=== PATIENT | male | born 1960 | race Caucasian/White ===

== ENCOUNTER 2019-12-12 10:16 | Emergency (ER) | payer BC, OTHER ==
[~2019-12-12] VITALS: Ht 172.7 cm; Wt 59.0 kg
[~2019-12-12 10:16] MED LIST: NORCO 5-325 TA1 EACH PO
[2019-12-12 11:08] LABS: HEMATOCRIT 45.6 % (42.0-52.0); HEMOGLOBIN 15.6 gm/dL (14.0-18.0); MCH 30.7 pg (26.0-34.0); MCHC 34.2 g/dL (28.0-37.0); MCV 89.8 fL (80.0-100.0); PLATELET COUNT 219 thou/uL (150-400); RBC 5.08 mil/uL (4.50-6.00); RDW 17.2 % (10.5-14.5); WBC 5.5 thou/uL (4.0-11.0)
[2019-12-12 11:14] LABS: ANION GAP 12 mmol/L (7-16); BUN 3 mg/dL (7-18); CALCIUM 8.5 mg/dL (8.5-10.1); CHLORIDE 88 mmol/L (98-107); CO2 25 mmol/L (21-32); CREATININE 0.5 mg/dL (0.7-1.3); GLUCOSE 116 mg/dL (74-106); POTASSIUM 3.9 mmol/L (3.5-5.1); SODIUM 125 mmol/L (136-145)
[2019-12-12 11:23] LABS: APTT 34.6 Seconds (24.5-32.8); INR 1.1; PROTIME 11.1 Seconds (9.3-11.4)
[2019-12-12 11:25] LABS: ALBUMIN 3.6 g/dL (3.4-5.0); MAGNESIUM 2.1 mg/dL (1.8-2.4); SGOT 70 U/L (15-37); SGPT 56 U/L (30-65); TOTAL BILIRUBIN 0.4 mg/dL (<0.1-1.0); TOTAL PROTEIN 7.4 g/dL (6.4-8.2); TROPONIN-I <0.06 ng/mL (<0.06)
[2019-12-12 11:40] LABS: ABSOLUTE NEUTROPHILS 3.8 thou/uL (1.4-8.2); PLATELET ESTIMATE NORMAL
[2019-12-12] MEDS ORDERED: VENTOLIN HFA 1818 GM INH (11:46)
[2019-12-12] MEDS ORDERED: PREDNISONE 20 M20 MG PO (11:46)
[2019-12-12] MEDS ORDERED: DOXYCYCLINE 10100 MG PO (11:46)
[2019-12-12 12:22] VITALS: BP 145/94
--- NOTE | 2019-12-13 08:20 | EKG ---
[facility] [place] [address] ELECTROCARDIOGRAM REPORT Name: JUANPABLOVÍCTORLESTER [id number] Admission: 12/12/19 Attend Phys: Discharge: 12/12/19 Date of : 56 Report #: [id number] THIS REPORT FOR: cc: FAM - Family physician unknown FAM - Family physician unknown Shawn Mcgovern MD ~ THIS REPORT FOR: //name// [facility] ED Test Date: 2019-12-12 Test Time: 10:55:26 Pat Name: LESTER GERONIMO Department: Room: Gender: Wanigan Clerk: : 1960 Requested By: Bassem Marcano Order Number: [id number] MD: Shawn Mcgovern Measurements Intervals [place] Rate: 73 P: 53 MN: 138 QRS: 75 QRSD: 76 T: 60 QT: 412 QTc: 454 Interpretive Statements Sinus rhythm Consider left atrial enlargement Baseline wander in lead(s) V1,V3,V4 No previous ECG available for comparison Electronically Signed On 12-13-2019 8:18:25 CDT by Shawn Mcgovern [email or web address] <ELECTRONICALLY SIGNED> By: Shawn Mcgovern MD 12/13/19 0818 1055 1055 Shawn Mcgovern MD /DALI
== END 2019-12-12 12:22 | disposition home or self-care (01) ==
LOC: ER 10:16
PROVIDERS: Emergency Medicine
DX: J44.1 Chronic obstructive pulmonary disease with (acute) exacerbation (principal); J06.9 Acute upper respiratory infection, unspecified; E87.1 Hypo-osmolality and hyponatremia; F10.10 Alcohol abuse, uncomplicated; J45.909 Unspecified asthma, uncomplicated; F17.210 Nicotine dependence, cigarettes, uncomplicated; Z88.8 Allergy status to other drugs, medicaments and biological substances; Y90.9 Presence of alcohol in blood, level not specified

== ENCOUNTER 2019-12-30 22:08 | Inpatient (IN) | payer OTHER ==
[~2019-12-30] VITALS: Ht 177.8 cm; Wt 48.2 kg
[~2019-12-30 22:08] MED LIST changes: +DOXYCYCLINE 10100 MG PO; +PREDNISONE 20 M20 MG PO; +VENTOLIN HFA 1818 GM INH
[2019-12-30 22:12] VITALS: BP 173/104
--- NOTE | 2019-12-30 22:16 | NUR ---
PATIENT'S STATES THAT HE WAS AT THIS FACILITY AROUND WAS GIVEN AN ANTIBIOTIC AND AN INHALER. STATES SHE DOES NOT BELIEVE HE IS USING THE INHALER CORRECTLY AND CONTINUES TO SMOKE. GAVE PHONE NUMBER TO BE NOTIFIED OF PATIENT CONDITION.
[2019-12-30 22:55] LABS: BE(vivo) -1.7 mmol/L (-2 to +3); HCO3 23.2 mmol/L (22.0-26.0); PCO2 VENOUS 39.9 mmHg (41.0-51.0); PO2 VENOUS 42.5 mmHg (35.0-45.0)
[2019-12-30 23:02] LABS: ABSOLUTE NEUTROPHILS 4.7 thou/uL (1.4-8.2); BASOPHILS 0.9 % (0.0-2.0); EOSINOPHILS 1.5 % (0.0-3.0); HEMATOCRIT 47.3 % (42.0-52.0); HEMOGLOBIN 16.4 gm/dL (14.0-18.0); LYMPHOCYTES 13.5 % (24.0-44.0); MCH 31.1 pg (26.0-34.0); MCHC 34.6 g/dL (28.0-37.0); MONOCYTES 11.6 % (1.0-8.0); PLATELET COUNT 223 thou/uL (150-400); POLYS 72.5 % (36.0-66.0); RBC 5.26 mil/uL (4.50-6.00); RDW 15.8 % (10.5-14.5); WBC 6.5 thou/uL (4.0-11.0)
[2019-12-30 23:14] LABS: ANION GAP 12 mmol/L (7-16); BUN 3 mg/dL (7-18); CALCIUM 8.5 mg/dL (8.5-10.1); CHLORIDE 88 mmol/L (98-107); CO2 24 mmol/L (21-32); CREATININE 0.6 mg/dL (0.7-1.3); GLUCOSE 80 mg/dL (74-106); POTASSIUM 4.2 mmol/L (3.5-5.1); SODIUM 124 mmol/L (136-145)
[2019-12-30 23:18] LABS: MAGNESIUM 2.2 mg/dL (1.8-2.4)
[2019-12-30 23:24] LABS: SGOT 53 U/L (15-37); SGPT 52 U/L (30-65); TOTAL BILIRUBIN 1.3 mg/dL (0.2-1.0); TOTAL PROTEIN 7.5 g/dL (6.4-8.2); TROPONIN-I <0.06 ng/mL (<0.06)
[2019-12-31 02:00] VITALS: BP 156/83
--- NOTE | 2019-12-31 02:01 | NUR ---
HANDOFF TOOL SENT TO [facility]
[2019-12-31 02:27] VITALS: BP 130/91
[2019-12-31 02:50] VITALS: BP 173/102
[2019-12-31 04:55] VITALS: BP 152/94
[2019-12-31 05:15] VITALS: BP 159/92
--- NOTE | 2019-12-31 08:34 | NUR ---
PT ARRIVED FROM ER VIA CART. PLACED IN ROOM 359. ADMISSION ASSESSMENTS COMPLETED. SEE CHARTING. PT REPORTING "I ONLY DRINK A SIX PACK A DAY." REPORTS SOA WITH RR 18-24 BPM. O2 SAT 90-92%. PT REPORTS NEARLY CONSTANT SENSE OF SOA. STATES HE HAS BEEN SOA SINCE HE WAS DISCHARGED A WEEK AGO. DID ALSO STATE THAT HE DID NOT COMPLETE THE DOSE OF DOXYCYCLINE AND PREDNISONE WHILE AT HOME. DENIES ANY PAIN, DENIES WEARING OXYGEN AT HOME. PER ER PT WAS COVERED IN FECES AND URINE SOAKED CLOTHING, PTS IS VERY UNKEPT WITH VERY DIRTY FINGERNAILS. HE STATES HE HAS NOT EATEN IN SEVERAL DAYS BUT DID NOT OFFER AN EXPLANATION TO WHY. SCHROEDER VIRUS SWAB COMPLETED IN ER, PRIOR TO ARRIVAL.
--- NOTE | 2019-12-31 08:47 | EKG ---
[facility] [place] [address] ELECTROCARDIOGRAM REPORT Name: JUANPABLOLESTER Room #: 359-P ADM IN M.R.#: [id number] Admission: 12/31/19 Attend Phys: Dagoberto Rainey MD Discharge: Date of : 56 Report #: [id number] THIS REPORT FOR: cc: LAVONNE - Nara family physician/PCP LAVONNE - Nara family physician/PCP Ronni Shirley MD [facility] ~ THIS REPORT FOR: //name// [facility] ED Test Date: 2019-12-30 Test Time: 22:43:58 Pat Name: LESTER GERONIMO Department: Room: [facility] Gender: M Special Agent In Charge: : 1960 Requested By: Lashawn Bunn Order Number: [id number] MD: Ronni Shirley Measurements Intervals [place] Rate: 85 P: 80 [place]: 144 QRS: 76 QRSD: 122 T: 59 QT: 406 QTc: 483 Interpretive Statements Sinus rhythm Frequent premature ventricular complexes Poor R wave progression Artifact in lead(s) V6 Compared to ECG 12/12/2019 10:55:26 Ventricular premature complex(es) now present Electronically Signed On 12-31-2019 8:45:21 CDT by Ronni Shirley [email or web address] <ELECTRONICALLY SIGNED> By: Ronni Shirley MD, [facility] 12/31/19 0845 [id number] [id number] Ronni Shirley MD, FAC /EPI
--- NOTE | 2019-12-31 13:41 | NUR ---
COVID NEG X 1...NOTIFIED KIMBERLY HILLS AND SHE STATED PATIENT TO REMAIN IN ENHANCED PRECAUTIONS OVERNIGHT AND WILL MONTITOR FOR FEVER AND REASSESS IN AM.
--- NOTE | 2019-12-31 15:25 | NUR ---
INITIAL ASSESSMENT: Received consult. CHINEDU reviewed chart and spoke with nursing and attending physician. Pt was admitted from home due to dyspnea. Pt is in Enhanced Isolation to r/o COVID-19. Pt test is negative. Pt with hx of daily ETOH use. SW attempted to contact pt twice in his room. Pt requested SW to call back later. Per chart, pt lives with his . Pt was recently in the ER on 12/11 and sent home with script for steroids/abx. Pt did not fill scripts. Pt does not have health insurance. [employer] to follow up with pt to see if he [place] or financial assistance. SW is following to assist as needed with discharge planning.
--- NOTE | 2019-12-31 20:27 | NUR ---
PATIENT COOPERATIVE WITH POC AND EATING POORLY INDICATING HE DOESN'T LIKE HOSPITAL FOOD. NOTIFIED DIETARY OF POOR NUTRITIONAL INTAKE. PATIENT HAS NO PAIN AND ABLE TO WALK WITH HAND HOLD ASSIST TO BATHROOM.
[2019-12-31 21:18] VITALS: BP 132/76
--- NOTE | 2019-12-31 23:31 | NUR ---
ASSUMED PT CARE AT 1900. PT REPORTS NO PAIN. COUGH WITH SOME SPUTUM PRODUCTION NOTICIED AND CHARTED. GOT AN ORDER FOR SOME COUGH DROPS PER PT REQUEST. PTS BODY IS RED AND WARM TO TOUCH BUT AFEBRILE. SPOKE TO THIS EVENING, SHE STATES THE PT DRINKS ABOUT 18 BEERS A DAY, BUT THINKS HE HAS CUT DOWN RECENTLY. SHE WANTED US TO ENCOURAGE HIM TO EAT SOMETHING BUT PT DECLINED DUE TO POOR APPETITE. FLUIDS INFUSING PER ORDER. PT IS RESTING IS BED RIGHT NOW WATCHING TV, WILL BE RECEIVING A BREATHING TX SOON.
[2020-01-01 06:04] VITALS: BP 159/113
[2020-01-01 06:33] LABS: HEMATOCRIT 43.8 % (42.0-52.0); HEMOGLOBIN 14.9 gm/dL (14.0-18.0); MCH 30.3 pg (26.0-34.0); MCHC 33.9 g/dL (28.0-37.0); MCV 89.2 fL (80.0-100.0); PLATELET COUNT 211 thou/uL (150-400); RDW 15.6 % (10.5-14.5); WBC 4.8 thou/uL (4.0-11.0)
[2020-01-01 06:47] LABS: CALCIUM 8.3 mg/dL (8.5-10.1); CREATININE 0.4 mg/dL (0.7-1.3); POTASSIUM 3.2 mmol/L (3.5-5.1)
[2020-01-01 11:17] LABS: ABSOLUTE NEUTROPHILS 3.8 thou/uL (1.4-8.2); ANISOCYTOSIS SLIGHT
--- NOTE | 2020-01-01 13:40 | NUR ---
CHINEDU reviewed chart and spoke with nursing and attending physician. Pt's COVID-19 test is negative. Pt remains in Enhanced Isolation. Pt with hx of COPD and daily ETOH use. Pt is slowly progressing towards goals for discharge. CHINEDU spoke with pt via phone. Introduced role of SW. Pt is alert/orientated. Pt states he lives at home with his . Prior to admission, pt was independent with ADLs. No use of DME. No hx of HH services or post-acute placement. Pt's PCP is Dr. Johanna Gabriel. Pt states he does have health insurance through his employer. CHINEDU faxed face sheet from current stay and ER visit last month to [facility] for review. Voice message left for [employer]. Received call back from [employer], stating pt's insurance termed on 12/29. Pt's secondary insurance only provide coverage for pt's . CHINEDU contacted [facility] industrial relations representative to follow up with pt. CHINEDU is following to assist as needed with discharge planning.
--- NOTE | 2020-01-01 16:35 | 2DMMODE ---
[facility] [address] [place] [address] 2 D/M-MODE ECHOCARDIOGRAM Name: LESTER GERONIMO Room #: 359-P ADM IN M.R.#: [id number] Admission: 12/31/19 Attend Phys: Rene Richey MD Discharge: Date of : 56 Report #: [id number] THIS REPORT FOR: cc: LAVONNE - No family physician/PCP LAVONNE - No family physician/PCP Ronni Shirley MD [facility] ~ APPROVED REPORT Study performed: 01/01/2020 15:40:30 EXAM: Comprehensive 2D, Doppler, and color-flow Echocardiogram Patient Location: Bedside Room #: 359 Status: routine BSA: 1.59 HR: 98 bpm BP: 143/86 mmHg Rhythm: PVC's Other Information Study Quality: Adequate Indications COPD Dyspnea 2D Dimensions IVSd: 10.43 (7-11mm) LVOT Diam: 22.00 (18-24mm) LVDd: 43.38 mm PWd: 8.57 (7-11mm) Ascending Ao: 36.81 (22-36mm) LVDs: 26.81 (25-40mm) Aortic Root: 36.16 mm IVC: 16.00 mm Volumes Left Atrial Volume (Systole) Single Plane 4CH: 50.38 mL Single Plane 2CH: 71.45 mL LA ESV Index: 41.00 mL/m2 Aortic Valve AoV Peak Favian.: 1.52 m/s AO Peak Gr.: 9.22 mmHg LVOT Max P.32 mmHg LVOT Max V: 1.35 m/s ROCKY Vmax: 3.39 cm2 [facility] [address] [place] [address] 2 D/M-MODE ECHOCARDIOGRAM Name: LESTER GERONIMO Room #: 359-P [facility] IN [place]#: [id number] Admission: 12/31/19 Attend Phys: Rene Richey MD Discharge: Date of : 56 Report #: [id number] Pulmonary Valve PV Peak Favian.: 0.89 m/s PV Peak Gr.: 3.14 mmHg Tricuspid Valve TR Peak Favian.: 2.39 m/s TR Peak Gr.: 22.89 mmHg PA Pressure: 33.00 mmHg Left Ventricle The left ventricle is normal size. There is normal LV segmental wall motion. There is normal left ventricular wall thickness. The left ventricular systolic function is normal. The left ventricular ejection fraction is within the normal range. LVEF is 55-60%. This study is not technically sufficient to allow evaluation of the LV diastolic function. Right Ventricle The right ventricle is normal size. The right ventricular systolic function is normal. Atria Left atrium is dilated. Right atrium size is normal. Aortic Valve The Aortic valve is mildly calcified. No aortic regurgitation is present. There is no aortic valvular stenosis. Mitral Valve Mitral valve leaflets possibly myxomatous, possible proplapse. Mitral valve is not well visualized. Moderate mitral regurgitation. No evidence of mitral valve stenosis. There is mitral valve prolapse. Tricuspid Valve The tricuspid valve is normal in structure. There is mild tricuspid regurgitation. Estimated PAP 33 mmHg There is mild pulmonary hypertension. Pulmonic Valve The pulmonary valve is normal in structure. There is no pulmonic valvular regurgitation. Great Vessels The aortic root is normal in size. IVC is normal in size and collapses <50% with inspiration. [facility] [address] [place] [address] 2 D/M-MODE ECHOCARDIOGRAM Name: LESTER GERONIMO Room #: 359-[facility] IN .R.#: [id number] Admission: 12/31/19 Attend Phys: Rene Richey MD Discharge: Date of : 56 Report #: [id number] Pericardium There is no pericardial effusion. <Conclusion> The left ventricular systolic function is normal. There is normal LV segmental wall motion. LVEF is 55-60%. Left atrium is dilated. The aortic valve is mildly calcified. No aortic regurgitation or stenosis. Mitral valve leaflets possibly myxomatous, possible prolapse. Mitral valve is not well visualized. Moderate mitral regurgitation. There is mild tricuspid regurgitation. Estimated pulmonary artery pressure of 33 mmHg There is no pericardial effusion. <ELECTRONICALLY SIGNED> By: Ronni Shirley MD, [facility] 01/01/20 1633 1633 1633 Ronni Shirley MD, FACC /INF
== END 2020-01-01 17:05 | disposition left against medical advice (07) | DRG 191 ==
LOC: ER 22:08 → EROBS 12-31 01:51 → 3W 12-31 01:51
PROVIDERS: Nurse Practitioner Family; Student in an Organized Health Care Education/Training Program; ADMIT Hospitalist
DX: J44.1 Chronic obstructive pulmonary disease with (acute) exacerbation (principal); E87.1 Hypo-osmolality and hyponatremia; Z68.1 Body mass index [BMI] 19.9 or less, adult; G62.9 Polyneuropathy, unspecified; F17.210 Nicotine dependence, cigarettes, uncomplicated; R62.7 Adult failure to thrive; F10.20 Alcohol dependence, uncomplicated; Z20.828 Contact with and (suspected) exposure to other viral communicable diseases; Z88.8 Allergy status to other drugs, medicaments and biological substances
CPT/HCPCS: 10779

== ENCOUNTER 2020-01-15 18:28 | Inpatient (IN) | payer OTHER ==
[~2020-01-15] VITALS: Ht 172.7 cm; Wt 49.2 kg
[2020-01-15 18:31] VITALS: BP 127/74
[2020-01-15 19:04] LABS: HEMATOCRIT 40.3 % (42.0-52.0); MCH 31.2 pg (26.0-34.0); MCHC 34.7 g/dL (28.0-37.0); MCV 89.8 fL (80.0-100.0); PLATELET COUNT 296 thou/uL (150-400); RBC 4.49 mil/uL (4.50-6.00); RDW 14.9 % (10.5-14.5); WBC 22.7 thou/uL (4.0-11.0)
[2020-01-15] MEDS ORDERED: DULOXETINE HCL20 MG PO (19:15)
[2020-01-15 19:25] LABS: ALBUMIN 2.9 g/dL (3.4-5.0); ANION GAP 15 mmol/L (7-16); BUN 3 mg/dL (7-18); CALCIUM 8.3 mg/dL (8.5-10.1); CHLORIDE 81 mmol/L (98-107); CO2 20 mmol/L (21-32); CREATININE 0.6 mg/dL (0.7-1.3); GLUCOSE 119 mg/dL (74-106); POTASSIUM 4.1 mmol/L (3.5-5.1); SGOT 32 U/L (15-37); SGPT 27 U/L (30-65); TOTAL BILIRUBIN 1.4 mg/dL (0.2-1.0); TOTAL PROTEIN 6.2 g/dL (6.4-8.2); TROPONIN-I <0.06 ng/mL (<0.06)
[2020-01-15 19:28] LABS: SODIUM 116 mmol/L (136-145)
[2020-01-15 19:35] LABS: ABSOLUTE NEUTROPHILS 21.6 thou/uL (1.4-8.2); ANISOCYTOSIS 1+; POLYCHROMASIA OCCASIONAL
--- NOTE | 2020-01-15 20:16 | NUR ---
SPOKE WITH , MEG WARNING . THIS NURSE GAVE UPDATE ON PLAN OF CARE. MEG HAS CONCERNS ABOUT PT ETOH CONSUMPTION, STATES HE DRINKS 4-6 BEERS EVER DAY, SHE IS UNSURE EXACTLY WHEN HIS LAST DRINK WAS. MEG REPORTS HE HAS BEEN REFUSING TO EAT THE LAST FEW DAYS AND THINKS "THIS IS HIS WAY OF KILLING HIMSELF." MEG STATES SHE DOES NOT HAVE DPOA AND WOULD LIKE CASE MANAGEMENT TO CONTACT HER ABOUT SETTING UP DPOA. THIS NURSE PLANS TO CALL MEG WHEN A BED ASSIGNMENT IS RECEIVED TO UPDATE HER AND GIVE HER THE NUMBER TO THE APPROPRIATE UNIT.
[2020-01-15 20:45] VITALS: BP 133/78
[2020-01-15 20:47] LABS: BE(vivo) -1.9 mmol/L (-2 to +3); HCO3 22.7 mmol/L (22.0-26.0); PCO2 VENOUS 38.5 mmHg (41.0-51.0); PO2 VENOUS 39.6 mmHg (35.0-45.0)
[2020-01-15 21:40] LABS: URINE BILIRUBIN NEGATIVE (Negative); URINE BLOOD TRACE (Negative); URINE CLARITY CLEAR; URINE COLOR YELLOW; URINE GLUCOSE-RANDOM* NEGATIVE (Negative); URINE KETONES NEGATIVE (Negative); URINE LEUKOCYTES-REFLEX NEGATIVE (Negative); URINE NITRITE-REFLEX NEGATIVE (Negative); URINE PROTEIN (DIPSTICK) NEGATIVE (Negative); URINE SPECIFIC GRAVITY <= 1.005 (1.005-1.035); URINE UROBILINOGEN 0.2 E.U./dl (0.2-1.0)
--- NOTE | 2020-01-15 21:54 | NUR ---
PT ADMITTED TO ICU ROOM 237 FROM ED AT 2150. PT DROWSY, BUT ORIENTED X3, RESPONDS TO VERBAL STIMULI. PT INCONTINENT OF URINE. WILL BE PLACING SMITH PER ORDERS IN ORDER TO MAINTAIN ACCURATE I&O. MONITOR SINUS TACHYCARDIA (116 BPM), O2 SAT 96% ON 2 LITER. VARIOUS BRUISES ALL OVER BODY, ABRASION OVER LEFT EYE SOCKET FROM FALL PRIOR TO ADMIT, AND COCCYX IS REDDENED.
[2020-01-15 22:00] VITALS: BP 149/94
[2020-01-15 22:15] VITALS: BP 128/84
[2020-01-15 22:45] VITALS: BP 129/83
[2020-01-15 23:00] VITALS: BP 127/83
[2020-01-15 23:06] LABS: MAGNESIUM 1.9 mg/dL (1.8-2.4); PHOSPHORUS 3.6 mg/dL (2.5-4.9)
[2020-01-15 23:36] LABS: FOLIC ACID 10.3 ng/mL (8.6-58.9)
--- NOTE | 2020-01-15 23:50 | NUR ---
PT ADMITTED FROM ED. PT WAS IN COMMUNITY AND FELL, [place] [employer] WERE CONTACTED, EMS CONTACTED AND PT BROUGHT TO ED. PER REPORT FROM ED PT WAS ON 3W WITHIN LAST 3 WEEKS. PT IS ORIENTED TO NAME SITUATION DAY OF THE WEEK, CONFUSED RE TIME AND HISTORY. PT IS DISHEVELED, UNKEMPT, ED REPORTED CLOTHES COVERED IN URINE, SOCKS VERY DIRTY. PT HAS DIRT UNDER NAILS, BOGGY WHITE HEELS, 3 COCCYX WOUNDS, RED COCCYX AND GROIN RASH. ABRASION OVER L EYE, ABRASION L KNEE. LUNGS WITH CRACKLES, O2 PER NC. ED PROVIDED ANTIBIOTICS AND FLUIDS. SMITH INSERTED TO DD. PT ABLE TO FOLLOW COMMANDS, MOVES ALL EXTREMITIES, TRANSFERED FROM CART TO BED, DROWSY, GOOD EYE CONTACT, CLEAR SPEECH. PT NOTED TO HAVE YELLOW DRAINAGE IN BILATERAL EYES. PT PROVIDED WIPE BATH AND NEW GOWN. PTS CALLED TO CHECK ON CONDITION. PT REMAINS IN COVID R/O. CONSULTS TO RENAL AND ID CONTACTED AND NEW ORDERS OBTAINED.
[2020-01-16] VITALS (8 sets, daily range): BP systolic 129–157; BP diastolic 80–97
[2020-01-16 01:05] LABS: CALCIUM 8.2 mg/dL (8.5-10.1); CREATININE 0.5 mg/dL (0.7-1.3); POTASSIUM 3.8 mmol/L (3.5-5.1)
[2020-01-16 05:48] LABS: HEMATOCRIT 42.9 % (42.0-52.0); HEMOGLOBIN 14.7 gm/dL (14.0-18.0); MCHC 34.3 g/dL (28.0-37.0); MCV 90.2 fL (80.0-100.0); RBC 4.75 mil/uL (4.50-6.00); WBC 15.7 thou/uL (4.0-11.0)
[2020-01-16 05:57] LABS: CREATININE 0.4 mg/dL (0.7-1.3); POTASSIUM 3.7 mmol/L (3.5-5.1)
--- NOTE | 2020-01-16 07:42 | EKG ---
[facility] [place] [address] ELECTROCARDIOGRAM REPORT Name: LESTER GERONIMO Room #: 237-P ADM IN M.R.#: [id number] Admission: 01/15/20 Attend Phys: Tong Tuttle MD Discharge: Date of : 56 Report #: [id number] THIS REPORT FOR: cc: LAVONNE - Nara family physician/PCP LAVONNE - Nara family physician/PCP Ronni Shirley MD [facility] THIS REPORT FOR: //name// [facility] ED Test Date: 2020-01-15 Test Time: 18:37:06 Pat Name: LESTER GERONIMO Department: Room: Pending [facility] to [facility] Gender: M Construction Equipment Technician: JAY : 1960 Requested By: Sandeep Dueñas Order Number: [id number] MD: Ronni Shirley Measurements Intervals [place] Rate: 119 P: 53 SD: 112 QRS: 70 QRSD: 108 T: 60 QT: 323 QTc: 455 Interpretive Statements Sinus tachycardia Otherwise no significant abnormality Compared to ECG 12/30/2019 22:43:58 Ventricular premature complex(es) no longer present Poor R-wave progression no longer present Electronically Signed On 01-16-2020 7:38:31 CDT by Ronni Shirley [email or web address] <ELECTRONICALLY SIGNED> By: Ronni Shirley MD, [facility] 01/16/20 [id number] Ronni Shirley MD, [facility] /EPI
--- NOTE | 2020-01-16 09:12 | NUR ---
WOUND CONSULT; ASESSMENT LIMITED TO PHOTOS DUE TO COVID RESTRICTIONS. 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 THE ALL THE WOUNDS ARE UNSTAGEABLE AGAIN RELATED TO LIMITED ASSESSMENT. THERE ARE LIKELY PRESSURE AREAS TO THE SACRUM/BILATERAL BUTTOCKS(POSSIBLE DTI),POSSIBLE ADDITIONAL PRESSURE INJURIES TO THE BILATERAL ISCHIAL TUBEROSITIES AND HEELS THAT ARE BOGGY THE RN STATED. THE BUTTOCKS LIKEY HAS A FUNGAL ETIOLOGY WELL. RECOMMENDSTIONS; 1-ANTIFUNGAL BARRIER CREAM AM 2-ZGUARD PM 3-BILATERAL PRAFO BOOTS ON AT ALL TIMES 4-USE THE LOW AIRLOSS FUNCTION ON THE BED AT ALL TIMES DISCUSSED WITH RN
--- NOTE | 2020-01-16 10:14 | NUR ---
PATIENT AOX4. PT SPOKE WITH PHYSICIAN AND STATED HE WANTED TO LEAVE AMA. NURSE FOLLOWED UP WITH PATIENT, EDUCATED ON RISKS REGARDING DIAGNOSIS AND WHAT AMA ENTAILED. PATIENT INSISTS ON LEAVING. PATIENT'S WAS NOTIFIED. STATES SHE WILL COME TO PICK HIM UP.
[2020-01-16 11:11] LABS: AMP/METHAMP Negative (Negative); BARBITURATES Negative (Negative); BENZODIAZEPINES Negative (Negative); COCAINE Negative (Negative); METHADONE Negative (Negative); OPIATES Negative (Negative); PCP Negative (Negative)
--- NOTE | 2020-01-16 11:41 | NUR ---
Consult received for discharge planning. Discussed with attending physician. Pt was admitted due to pneumonia. Pt with hx of ETOH abuse. Pt does not have health insurance. Pt left AMA earlier today. Case closed.
== END 2020-01-16 11:22 | disposition left against medical advice (07) | DRG 871 ==
LOC: ER 18:28 → ICU 20:29 → EROBS 20:29 → ICU 21:46
PROVIDERS: Emergency Medicine; Hospitalist; Internal Medicine Nephrology; Nurse Practitioner Family; ADMIT Hospitalist; ATTEND Hospitalist
DX: A41.9 Sepsis, unspecified organism (principal); J96.01 Acute respiratory failure with hypoxia; J18.9 Pneumonia, unspecified organism; E87.1 Hypo-osmolality and hyponatremia; J44.0 Chronic obstructive pulmonary disease with (acute) lower respiratory infection; G62.9 Polyneuropathy, unspecified; F10.10 Alcohol abuse, uncomplicated; R62.51 Failure to thrive (child); Z53.29 Procedure and treatment not carried out because of patient's decision for other reasons; Z20.828 Contact with and (suspected) exposure to other viral communicable diseases; F17.210 Nicotine dependence, cigarettes, uncomplicated; L89.159 Pressure ulcer of sacral region, unspecified stage; S00.83XA Contusion of other part of head, initial encounter; Z88.8 Allergy status to other drugs, medicaments and biological substances; Z71.6 Tobacco abuse counseling; X58.XXXA Exposure to other specified factors, initial encounter; Y93.89 Activity, other specified; Y92.89 Other specified places as the place of occurrence of the external cause; Y99.8 Other external cause status
CPT/HCPCS: 10078

== ENCOUNTER 2020-01-22 05:05 | Inpatient (IN) | payer OTHER ==
[2020-01-22] VITALS (17 sets, daily range): BP systolic 101–154; BP diastolic 55–89
[~2020-01-22] VITALS: Ht 172.7 cm; Wt 53.5 kg
--- NOTE | ~2020-01-22 | EMS ---
[facility] [address] [place] [address] EMS Patient Care Report Name: LESTER GERONIMO Room #: PRE ER M.R.#: [id number] Admission: Attend Phys: Discharge: Date of : 56 Report #: [id number] THIS REPORT FOR: //name// Report Transmitted: 01/22/2020 04:56 EMS Care Summary [facility] Incident [id number] @ 01/22/2020 04:20 Incident Location [address] [place] [address] Patient LESTER GERONIMO Male, 59 Years 1960 Patient Address [address] [place] [address] Patient History Alcohol Abuse, Patient Allergies No known allergies, Patient Medications Doxycycline, Voltaren, Chief Complaint Shortness of breath Disposition Transported No Lights/[place] Dispatch Reason Breathing Problem Transported To [facility] Narrative AOS to 59yo M. Found in private res. Alert to verbal. Oriented x1 . C/O Shortness of breath. Pt has recently signed out AMA from ICU with pneumonia. Per , today he has been drinking ETOH and becoming increasingly short of breath until the last hour when he has become more incoherent and short of [address] [address] EMS Patient Care Report Name: LESTER GERONIMO Room #: PRE ER Kala.#: [id number] Admission: Attend Phys: Discharge: Date of : 56 Report #: [id number] breath. Negative chest pain. Negative Abd pain. Negative N/V. Negative trauma. PERRL. Diminished lung sounds on right. 12 lead shows no acute changes. Pt placed on 4lpm O2 via NC .with minor improvement. Pt moved to ambulance via gurney without incident. Pt placed on 15lpm O2 via NC .with positive improvement. Blood glucose 55. Medic [place] admin dextrose with positive effect. Pt transported in POC without incident. Pt care transferred to DEALER ANALYST without incident. Squad 51 returned to service. All time approx. Initial Vitals @04:40 @04:40 @04:54P: 124,R: 22,BP: 166/98,Pain: 0/10,GCS: 13,Glucose: 210,CO: 1,SpO2: 99,Revised Trauma: 12, @04:36P: 119,R: 22,BP: 179/94,GCS: 13,Glucose: 55,SpO2: 86,Revised Trauma: 12, @04:37P: 121,SpO2: 88, @04:48P: 119,R: 22,BP: 158/93,CO: 1,SpO2: 100, Assessments @04:30MENTAL:Confused,Person Oriented,SKIN:Pale,HEENT:Head/Face: No Abnormalities,Eyes: No Abnormalities,Neck/Airway: No Abnormalities,LUNG SOUNDS:General: No Abnormalities,Left Upper: No Abnormalities,Right Upper: No Abnormalities,Left Lower: No Abnormalities,Right Lower: No Abnormalities,ABDOMEN:General: No Abnormalities,Left Upper: No Abnormalities,Right Upper: No Abnormalities,Left Lower: No Abnormalities,Right Lower: No Abnormalities,PELVIS//GI:No Abnormalities,EXTREMITIES:Left Arm: No Abnormalities,Right Arm: No Abnormalities,Left Leg: No Abnormalities,Right Leg: No Abnormalities,PULSE:NEURO:No Abnormalities,@04:57MENTAL:Person Oriented,Confused,SKIN:Pale,HEENT:Head/Face: No Abnormalities,Eyes: No Abnormalities,Neck/Airway: No Abnormalities,LUNG SOUNDS:General: No Abnormalities,Left Upper: No Abnormalities,Right Upper: No Abnormalities,Left Lower: No Abnormalities,Right Lower: No Abnormalities,ABDOMEN:General: No Abnormalities,Left Upper: No Abnormalities,Right Upper: No Abnormalities,Left Lower: No Abnormalities,Right Lower: No Abnormalities,PELVIS//GI:No Abnormalities,EXTREMITIES:Left Arm: No Abnormalities,Right Arm: No Abnormalities,Left Leg: No Abnormalities,Right Leg: No Abnormalities,PULSE:NEURO:No Abnormalities, Impression Acute Respiratory Distress (Dyspnea) Procedures @04:38ALS AssessmentResponse: UnchangedSucceeded@04:40Saline Lock 0cc (18 ga) Site: Forearm-RightResponse: UnchangedFailed@04:49D10W 200cc (20 ga) Site: Forearm-LeftResponse: ImprovedSucceeded@04:50Dextrose 10% - 200 Milliliters (ml) - Intravenous (IV)Response: Improved@04:32Oxygen FlowRate: 4 Device: Nasal Cannula (NC) Response: ImprovedSucceeded@04:40Oxygen FlowRate: 15 Device: Non [address] [address] EMS Patient Care Report Name: LESTER GERONIMO Room #: PRE ER M.R.#: [id number] Admission: Attend Phys: Discharge: Date of : 56 Report #: [id number] Re-breather Mask (NRB) Response: UnchangedSucceeded Timeline 04:19,Call Received 04:19,Psap Call 04:20,Dispatched 04:24,En Route 04:25,Initial Responder On Scene 04:29,On Scene 04:30,At Patient 04:32,Oxygen FlowRate: 4 Device: Nasal Cannula (NC) Response: ImprovedSucceeded, 04:36,BP: 179/94 M,PULSE: 119,RR: 22 R,SPO2: 86 Ox,ETCO2: ,B,PAIN: ,GCS: 13, 04:37,BP: / M,PULSE: 121,RR: R,SPO2: 88 Ox,ETCO2: ,BG: ,PAIN: ,GCS: , 04:38,ALS Assessment,Response: UnchangedSucceeded, 04:40,Saline Lock 0cc 18 ga Site: Forearm-Right,Response: UnchangedFailed, 04:40,BP: / M,PULSE: ,RR: R,SPO2: Ox,ETCO2: ,BG: ,PAIN: ,GCS: , 04:40,Oxygen FlowRate: 15 Device: Non Re-breather Mask (NRB) Response: UnchangedSucceeded, 04:40,BP: / M,PULSE: ,RR: R,SPO2: Ox,ETCO2: ,BG: ,PAIN: ,GCS: , 04:48,Depart Scene 04:48,BP: 158/93 M,PULSE: 119,RR: 22 R,SPO2: 100 Ox,ETCO2: ,BG: ,PAIN: ,GCS: , 04:49,D10W 200cc 20 ga Site: Forearm-Left,Response: ImprovedSucceeded, 04:50,Dextrose 10% - 200 Milliliters (ml) - Intravenous (IV),Response: Improved 04:54,BP: 166/98 M,PULSE: 124,RR: 22 R,SPO2: 99 Ox,ETCO2: ,B,PAIN: 0,GCS: 13, 05:02,At Destination 05:17,Call Closed Disclaimer v1.1 Copyright 2020 [employer] This EMS Care Summary contains data elements from the applicable legal record (which may be displayed differently). It is designed to provide pertinent information for the following purposes: continuity of care, clinical quality, and state data reporting. The complete legal record is available to ED staff and administrators of the receiving hospital in ES's Patient Tracker. All data is provided "as is."
[~2020-01-22 05:05] MED LIST changes: +DULOXETINE HCL20 MG PO
[2020-01-22 05:21] LABS: BE(vivo) -5.5 mmol/L (-2 to +3); HCO3 23.9 mmol/L (22.0-26.0); PCO2 65.3 mmHg (35.0-45.0); pH 7.182 (7.360-7.450); sO2 99.5 % (92.0-98.0)
[2020-01-22 05:42] LABS: ABSOLUTE NEUTROPHILS 17.9 thou/uL (1.4-8.2); BASOPHILS 0.2 % (0.0-2.0); EOSINOPHILS 0.1 % (0.0-3.0); HEMATOCRIT 38.4 % (42.0-52.0); LYMPHOCYTES 1.4 % (24.0-44.0); MCH 30.3 pg (26.0-34.0); MCHC 33.8 g/dL (28.0-37.0); MCV 89.6 fL (80.0-100.0); MONOCYTES 7.5 % (1.0-8.0); PLATELET COUNT 319 thou/uL (150-400); POLYS 90.8 % (36.0-66.0); RBC 4.29 mil/uL (4.50-6.00); RDW 14.9 % (10.5-14.5); WBC 19.7 thou/uL (4.0-11.0)
[2020-01-22 05:47] LABS: APTT 37.8 Seconds (24.5-32.8); INR 1.1; PROTIME 11.5 Seconds (9.3-11.4)
[2020-01-22 05:55] LABS: ALBUMIN 2.4 g/dL (3.4-5.0); ANION GAP 5 mmol/L (7-16); BUN 10 mg/dL (7-18); CALCIUM 7.7 mg/dL (8.5-10.1); CHLORIDE 77 mmol/L (98-107); CO2 26 mmol/L (21-32); CREATININE 0.5 mg/dL (0.7-1.3); GLUCOSE 225 mg/dL (74-106); MAGNESIUM 1.8 mg/dL (1.8-2.4); POTASSIUM 4.9 mmol/L (3.5-5.1); SGOT 38 U/L (15-37); SGPT 25 U/L (30-65); TOTAL PROTEIN 5.3 g/dL (6.4-8.2); TROPONIN-I <0.06 ng/mL (<0.06)
[2020-01-22 06:12] LABS: SODIUM 108 mmol/L (136-145)
[2020-01-22] MEDS ORDERED: NOHOMEMEDICATIONS (07:14)
[2020-01-22 07:41] LABS: BE(vivo) -3.7 mmol/L (-2 to +3); HCO3 21.9 mmol/L (22.0-26.0); PCO2 41.4 mmHg (35.0-45.0); PO2 89.1 mmHg (80.0-100.0); pH 7.341 (7.360-7.450); sO2 96.4 % (92.0-98.0)
[2020-01-22 09:04] LABS: FOLIC ACID 14.2 ng/mL (8.6-58.9)
[2020-01-22 10:02] LABS: URINE BILIRUBIN NEGATIVE (Negative); URINE BLOOD 1+ (Negative); URINE CLARITY CLOUDY; URINE COLOR YELLOW; URINE GLUCOSE-RANDOM* 1+ (Negative); URINE KETONES 1+ (Negative); URINE LEUKOCYTES-REFLEX NEGATIVE (Negative); URINE NITRITE-REFLEX NEGATIVE (Negative); URINE PROTEIN (DIPSTICK) TRACE (Negative); URINE UROBILINOGEN 0.2 E.U./dl (0.2-1.0)
[2020-01-22 10:17] LABS: CASTS None Seen /LPF (None Seen); MUCUS 4-6 Moderate strn/LPF (None Seen); SQUAMOUS 0-3 Few /LPF (0-3)
[2020-01-22 10:19] LABS: BACTERIA-REFLEX 1-9 Few /HPF (None Seen); CRYSTALS None Seen /LPF (None Seen); URINE RBC 3-10 Few /HPF (0-2); URINE WBC-REFLEX 6-15 Few /HPF (0-5)
[2020-01-22 10:20] LABS: WBC CLUMPS Occasional (None Seen)
[2020-01-22 10:59] LABS: HCO3 25.8 mmol/L (22.0-26.0); PCO2 105.6 mmHg (35.0-45.0); PO2 110.7 mmHg (80.0-100.0); pH 7.006 (7.360-7.450); sO2 94.8 % (92.0-98.0)
[2020-01-22 12:20] LABS: BE(vivo) -4.5 mmol/L (-2 to +3); HCO3 22.6 mmol/L (22.0-26.0); PCO2 49.4 mmHg (35.0-45.0); PO2 86.4 mmHg (80.0-100.0); sO2 95.3 % (92.0-98.0)
[2020-01-22 12:21] LABS: pH 7.278 (7.360-7.450)
[2020-01-22 12:50] LABS: CALCIUM 7.9 mg/dL (8.5-10.1); CREATININE 0.5 mg/dL (0.7-1.3); POTASSIUM 4.5 mmol/L (3.5-5.1)
[2020-01-22 14:01] LABS: CALCIUM 7.8 mg/dL (8.5-10.1); CREATININE 0.6 mg/dL (0.7-1.3); POTASSIUM 4.2 mmol/L (3.5-5.1)
--- NOTE | 2020-01-22 15:46 | EKG ---
[facility] K[address] Lewis [facility] [place] [address] ELECTROCARDIOGRAM REPORT Name: LESTER GERONIMO Room #: 170 ADM IN M.R.#: [id number] Admission: 01/22/20 Attend Phys: Mike Solo MD Discharge: Date of : 56 Report #: [id number] THIS REPORT FOR: cc: ALVONNE - Nara family physician/PCP LAVONNE - Nara family physician/PCP Shawn Mcgovern MD ~ THIS REPORT FOR: //name// [facility] ED Test Date: 2020-01-22 Test Time: 07:36:22 Pat Name: LESTER GERONIMO Department: Room: [facility] Gender: M Data Sme: ISH : 1960 Requested By: Bassem Marcano Order Number: [id number] MD: Shawn Mcgovern Measurements Intervals [place] Rate: 110 P: 69 [place]: 144 QRS: 69 QRSD: 111 T: 61 QT: 361 QTc: 489 Interpretive Statements Sinus tachycardia Borderline prolonged QT interval Compared to ECG 01/15/2020 18:37:06 No significant changes Electronically Signed On 01-22-2020 15:45:20 CDT by Shawn Mcgovern [email or web address] <ELECTRONICALLY SIGNED> By: Shawn Mcgovern MD 01/22/20 1545 0736 0736 Shawn Mcgovern MD /EPI
--- NOTE | 2020-01-22 16:20 | NUR ---
ATTMEPTED TO CALL REPORT TO ICU THE NURSE STATED THE "ROOM HAD NOT BEEN CLEANED YET" AND THE "ADMITTING NURSE WILL CALL BACK WHEN IT IS READY"
[2020-01-22 16:26] LABS: CALCIUM 7.4 mg/dL (8.5-10.1); CREATININE 0.5 mg/dL (0.7-1.3); POTASSIUM 3.6 mmol/L (3.5-5.1)
--- NOTE | 2020-01-22 17:41 | NUR ---
ATTEMPTED TO CALL REPORT AGAIN, WAS TOLD THE NURSE IS BUSY WITH A COVID PT AND THEY WILL CB
--- NOTE | 2020-01-22 19:26 | NUR ---
PATIENT ARRIVED IN ICU AT 1830 FROM E.D. PLACED ON THE MONITOR. PATIENT ON THE VENT AND LIGHT SEDATION. OGTomasa AND SARAH NOTED. REPORT FROM E.Renee. NURSE GIVEN TO ONCOMING SHIFT RITIKA STEINER.
[2020-01-22 20:19] LABS: CALCIUM 8.2 mg/dL (8.5-10.1); CREATININE 0.5 mg/dL (0.7-1.3); POTASSIUM 3.9 mmol/L (3.5-5.1)
--- NOTE | 2020-01-22 21:53 | NUR ---
PATIENT ADMITED FROM ED DEPARTMENT, SETTLED IN ROOM. CONSULTS CALLED AND COMPLETED. DR. CARPIO PRESENT AT THE BEDSIDE FOR ASSESSMENT, ORDER NOTED TO DISCONTINUE ENHANCED PRECAUIONS. REPORT RECIEVED FROM DAY NURSE, NOTED ER CALLED TO HOTLINE ON PATIENT DUE TO POOR CARE AT HOME, PATIENT WAS FOUND WITH MULTIPLE WOUNDS, MAGGOTS IN BILATERAL HEEL AND COVERED IN FECES/URINE BY EMS. ER WAS ON HOLD FOR AN HOUR AND HUNG UP, WILL NOTIFY SOCIAL WORK. PATIENT NOTED HAVING A RECENT PREVIOUS ADMISSION TO ICU WHERE LEFT AMA, STATED HE LEFT DUE TO NO BEING ABLE TO AFFORD THE HOSPITAL STAY. ALSO STATED THAT PATIENT HAS A PROSTHETIC LEFT EYE THAT IT'S INFECTED, DR. CARPIO MADE AWARE. RESTRAINTS PRESENT ON PATIENT, LIGHT SEDATION FOR VENTILATOR MANAGEMENT. SMITH PATENT TO DEPENDENT DRAINAGE. ALSO STATED THAT PATIENT HAS A HISTORY OF FIBROMYALA AND HAS BEEN WEAK FOR THE PAST 3 MONTHS, SHE STATED PATIENT HAS BEEN STAGNANT ON COUCH, SHE WAS NOT AWARE OF FOOT WOUNDS, SHE STATED THAT PATIENT'S SOCKS WERE SOILED AT HOME AND IT WAS STATED BY WHEN SHE ATTEMPTED TO CHANGE SOCKS PATIENT WAS AGGRESSIVE TOWARDS HER. PATIENT'S MADE AWARE OF SEVERITY OF CONDITION AND UPDATED ON PATIENT'S PLAN. REPORT GIVEN TO ONCOMING RITIKA.
--- NOTE | 2020-01-22 22:34 | NUR ---
SPOKE WITH AND UPDATED ON PATIENT'S MOVE FROM 239 TO 247.
[2020-01-23] VITALS (23 sets, daily range): BP systolic 88–143; BP diastolic 53–96
[2020-01-23 00:06] LABS: GLYCOHEMOGLOBIN (HGB A1C) 5.2 % (4.8-5.6)
[2020-01-23 05:42] LABS: ABSOLUTE NEUTROPHILS 12.4 thou/uL (1.4-8.2); BASOPHILS 0.1 % (0.0-2.0); HEMATOCRIT 37.1 % (42.0-52.0); HEMOGLOBIN 12.3 gm/dL (14.0-18.0); LYMPHOCYTES 2.8 % (24.0-44.0); MCH 30.2 pg (26.0-34.0); MCHC 33.2 g/dL (28.0-37.0); MCV 91.1 fL (80.0-100.0); MONOCYTES 5.1 % (1.0-8.0); PLATELET COUNT 304 thou/uL (150-400); RBC 4.07 mil/uL (4.50-6.00); RDW 14.3 % (10.5-14.5); WBC 13.5 thou/uL (4.0-11.0)
[2020-01-23 06:04] LABS: ALBUMIN 2.2 g/dL (3.4-5.0); CALCIUM 8.3 mg/dL (8.5-10.1); CREATININE 0.5 mg/dL (0.7-1.3); MAGNESIUM 2.2 mg/dL (1.8-2.4); PHOSPHORUS 2.6 mg/dL (2.5-4.9); POTASSIUM 3.8 mmol/L (3.5-5.1)
--- NOTE | 2020-01-23 07:55 | NUR ---
CALLED, HAD PRIVACY CODE. SPOKE WITH HER SEVERAL TIMES THROUGHTOUT SHIFT CONDITION REMAINS UNCHANGED. PT AWAKENS EASILY ON PROPOFOL. VS WNL. MONITOR SR. LEGS MOTTLED. US DONE.REPORT PENDING. FEET IN BOOTS ORDERED. GOOD UO. AM LABS PENDING. 02SAT 100 ON VENT WITH FI02 50. MULTIPLE SMALL LOOSE STOOLS. BUTTOCKS/SACREM WITH LARGE WOUND. SEE PIC. CONT PLAN OF CARE.
--- NOTE | 2020-01-23 10:36 | HC ---
[facility] [place] [address] CONSULTATION Name: LESTER GERONIMO Room #: [facility] ADM IN M.R.#: [id number] Admission: 01/22/20 Attend Phys: Mike Solo MD Discharge: Date of : 56 Report #: [id number] THIS REPORT FOR: cc: LAVONNE - No family physician/PCP LAVONNE - No family physician/PCP Nahid Khan MD ~ CC: [facility] physician/PCP Mike Solo DATE OF SERVICE: 01/22/2020 CHIEF COMPLAINT: Multiple ulcerations. HISTORY OF PRESENT ILLNESS: This is a 59-year-old male patient with a history of alcohol abuse and peripheral neuropathy. He was brought to [facility] by EMS with respiratory failure. He was initially started on BiPAP, had increasing CO2 retention, was then intubated and remains on mechanical ventilation. I have been asked to see him with regard to extensive wounds involving the trunk and lower extremities. The patient is sedated on a respirator, unable to provide any information about himself. All information comes from his medical record and from discussion with the admitting team as well as the Emergency Department physician. PAST MEDICAL HISTORY: Positive for history of bilateral neuropathy, 81-mobi-dddr smoker, history of alcohol abuse, possible COPD, previous arthroscopy of the left knee and a prosthetic left eye. SOCIAL HISTORY: The patient admits to daily alcohol consumption per the chart, also a daily smoker. FAMILY HISTORY: Unknown. REVIEW OF SYSTEMS: Unobtainable. MEDICATIONS: Known Include hydrocodone, prednisone, doxycycline, albuterol. ALLERGIES: PROPOXYPHENE. PHYSICAL EXAMINATION: VITAL SIGNS: Temperature not documented, pulse rate 100, blood pressure 148/83, respiratory rate of 17. GENERAL: This is a cachectic-appearing male patient, who is sedated, does not open his eyes. HEENT: Nose is clear. Throat demonstrates endotracheal tube in place. LUNGS: Clear. HEART: Regular rhythm. [facility] [address] [place] [address] CONSULTATION Name: LESTER GERONIMO Room #: 247-P [facility] IN [facility].#: [id number] Admission: 01/22/20 Attend Phys: Mike Solo MD Discharge: Date of : 56 Report #: [id number] ABDOMEN: Soft. EXTREMITIES: Pelvic region demonstrates fungal/yeast type dermatitis to the perineum, scrotum and gluteal sacral regions. He is unstageable pressure ulcerations to the buttocks bilaterally. There is wet eschar in place. EXTREMITIES: Lower extremities demonstrate deep tissue injuries to both heels, absent distal pulses. Nails are hypertrophic. NEUROLOGIC: The patient is minimally responsive at this time. LABORATORY DATA: Include white blood cell at 19.7, hemoglobin 13.0. Sodium 121, potassium 3.6, chloride 90, CO2 of 27, BUN 6, creatinine 0.5, glucose 88, calcium 7.4, albumin is low at 2.4. CLINICAL IMPRESSION: 1. Unstageable pressure ulceration to the buttocks bilaterally. 2. Yeast dermatitis to the perineal region. 3. Deep tissue injuries to both heels. 4. Peripheral vascular disease by clinical exam. 5. Respiratory failure, requiring mechanical ventilation. 6. Alcohol abuse. 7. Cachexia. RECOMMENDATIONS: At this point in time, the patient is being due admitted presumably to intensive care. We will recommend PRAFO boots to both lower extremities for pressure prophylaxis and Betadine paint to the heels. We will check arterial Dopplers to evaluate for peripheral vascular disease. Recommend an antifungal barrier cream to the perineal region and groin b.i.d. and p.r.n. He will need low air loss mattress and q. 2 hour turning positioning. He will need cautious nutritional support to maximize his wound healing, potential ongoing medical care for his respiratory failure. I appreciate being asked to see him in consultation. <ELECTRONICALLY SIGNED> By: Nahid Khan MD 01/23/20 1036 [id number] [id number] Nahid Khan MD /nt
--- NOTE | 2020-01-23 10:49 | NUR ---
Nutrition: Plan TF start. REC start Vital HP at 20 mL/hr and advance slowly to goal rate of 50 mL/hr with current propofol demands. Pt high refeeding syndrome risk.
--- NOTE | 2020-01-23 12:41 | NUR ---
CONSULTED TO PLACE A CENTRAL LINE FOR A PATIENT IN ICU. ORDER AND CONSENT NOTED. THE PROCEDURE WELL RISKS OF DVT, INFECTION AND PNEUMO WERE DISCUSSED WITH THE PATIENTS AND QUESTIONS WERE ANSWERED. A RIGHT IJ CENTRAL LINE WAS ATTEMPTED PER HOSPITAL POLICY. A STAT CHEST XRAY- LINE HAD COILED. A 2ND LINE VIA OTW WAS PLACED AND THE REPEAT XRAY SHOWING LINE IN GOOD POSITION FOR USE.
--- NOTE | 2020-01-23 17:47 | NUR ---
Consult rec'd for dc planning and request to hotline d/t neglect. Chart reveiwed and case discussed with the care team. Pt is currently in the ICU and intubated. Account Processor visited with his Kathleen who has been at the bedside today. She did provide a copy of his DPOA for HC document and she is noted as the primary agent and his sister Luiza/her sister as alernates. A copy was placed on the chart. Hotline called placed to [facility] based on EMS/ER report of pt's living conditions and his physical appearance upon admission. The pt was covered in feces and foul smelling. He had mutliple pressure ulcers on his sacral area and bila heels; some with maggots. EMS reported the home to be filthy, with animal and human feces, beer cans and pt was minimally responsive. Pt is known to cm from recent admission and AMA discharge. He has a long history of ethol abuse, normally beer and is disabled due to fibromyalgia. He got his SS disability approved in Jun 2019. His Kathleen reports that he has been refusing to eat, shower or seek medical care reporting he just wanted to drink himself to . She states she tried to get him to take a shower and go see his pcp, Dr.Julie Gabriel and even had his sister Luiza come over to try and talk with him. She feels he left AMA to drink and because he was also concerned about finances. He has a limited ins policy through [employer]. Info provided to UR RN for admitting to verify. Dr. Zarate office was notified of the pt's admission and their staff reports that the pt was difficult and non compliant. They have several dogs. The pt's was advised of the hotline call to [facility] and that they would be in touch with her. She requested his sister Luiza be added to be able to call in and check on him. They do not have children. She works outside the home and he is normally able to get around indep with no DME. She notes that he did try to apply for [place] medicaid but they are over resourced due to retirment savings. She did get him a rwalker and w/c a couple of days ago as he was getting weaker. Emotional support provided. She is going to get the home cleaned up and feels this might be a "wake up call" for him. [facility]. She notes that he has never been to AA or tried to go to rehab. Will follow along for support and dc planning. DC timeframe is uncertain. She is awaiting an update from the physicians. She is available as needed and wants to be supportive. Will need to have therapy/rehab evals the pt is able to come off the vent. He is following commands. Nursing updated.
[2020-01-24] VITALS (24 sets, daily range): BP systolic 93–135; BP diastolic 54–77
--- NOTE | 2020-01-24 00:06 | NUR ---
Pt's called in, updated on pt status.
[2020-01-24 02:06] LABS: HIV ANTIBODY Non Reactive (Non Reactive)
[2020-01-24 05:20] LABS: BE(vivo) -1.7 mmol/L (-2 to +3); HCO3 21.2 mmol/L (22.0-26.0); PCO2 29.6 mmHg (35.0-45.0); PO2 226.9 mmHg (80.0-100.0); pH 7.472 (7.360-7.450); sO2 99.6 % (92.0-98.0)
[2020-01-24 05:56] LABS: ALBUMIN 1.8 g/dL (3.4-5.0); CALCIUM 7.7 mg/dL (8.5-10.1); CREATININE 0.3 mg/dL (0.7-1.3); PHOSPHORUS 2.2 mg/dL (2.5-4.9); POTASSIUM 3.9 mmol/L (3.5-5.1)
--- NOTE | 2020-01-24 10:22 | NUR ---
SPOKE WITH PATIENT'S SISTER ROBIN [phone]. GAVE UPDATE ON PATIENT STATUS. ANSWERED HER QUESTIONS REGARDING PATIENT CARE AND PLAN. ROBIN EXPRESSED UNDERSTANDING AND DENIED ANY FURTHER QUESTIONS AT THIS TIME.
--- NOTE | 2020-01-24 15:01 | NUR ---
Pt remains in ICU on the vent. Spouse at bedside off and on today. [facility] lead case manager, Dominga Francois [phone], called to confirm she has been assigned his hotline case. She requested cm to update her once the pt has a dc timeframe and plan. Consumer Attorney confirmed the pt's current ICU status. Will follow.
--- NOTE | 2020-01-24 15:17 | HC ---
[facility] [place] [address] CONSULTATION Name: LESTER GERONIMO Room #: [facility] ADM IN M.R.#: [id number] Admission: 01/22/20 Attend Phys: Mike Solo MD Discharge: Date of : 56 Report #: [id number] THIS REPORT FOR: cc: LAVONNE - Nara family physician/PCP LAVONNE Bains family physician/PCP Min Calix MD ~ CC: [facility] physician/PCP Mike Solo DATE OF SERVICE: 01/22/2020 REASON FOR CONSULTATION: Hyponatremia. REASON FOR PRESENTATION: Altered level of consciousness. HISTORY OF PRESENT ILLNESS: This is obtained from the medical chart. Unfortunately, the patient is known to have intoxication issues. He presented with shortness of breath accompanied by his . Apparently, the patient's called the EMS because he was complaining of shortness of breath. His initial O2 sat in field was reported to be in 50; however, I am not really sure how accurate is that. There are so many ingrown issues regarding the patient's current mental capacity, social issues. He continues to drink. It does look like that his social and living situation was not in a good condition. EMS reported that the house was filthy with foul smelling animal waste and human waste. There were also empty beer cans. The patient's sodium on presentation was found to be 108. The patient was admitted a few days ago to the ICU with a similar presentation; however, he signed against medical advice. PAST MEDICAL HISTORY: 1. Obtained from the medical chart. 2. Alcohol abuse. 3. Tobacco abuse. 4. Prosthetic left eye. 5. Arthroscopy of the left knee. MEDICATIONS: Listed amongst his medications, hydrocodone and doxycycline. ALLERGIES: LISTED DARVON. SOCIAL HISTORY: Unable to obtain, but there is a significant history of alcohol and tobacco abuse. FAMILY HISTORY: Unable to obtain given the patient's current mental status. REVIEW OF SYSTEMS: Unable to obtain given the patient's current mental status. [facility] [address] [place] [address] CONSULTATION Name: LESTER GERONIMO Room #: [facility] IN M.R.#: [id number] Admission: 01/22/20 Attend Phys: Mike Solo MD Discharge: Date of : 56 Report #: [id number] PHYSICAL EXAMINATION VITAL SIGNS: Pulse rate is 118, respiratory rate is 16, blood pressure is 165/97. GENERAL: He is extremely cachectic and emaciated with very poor hygiene. HEAD AND NECK: Poor dentition. CHEST: Decreased air entry on the right side. CARDIOVASCULAR: No rub. ABDOMEN: Soft. LOWER EXTREMITIES: There are extensive cellulitic changes in the groin area, in the left and right feet, plantar aspect. LABORATORY VALUES: White blood cell count 19.7, hemoglobin 13.0. Sodium is 108, potassium is 4.9, BUN is 10, creatinine is 0.5, AST is 38. Calcium is 7.7, blood sugar is 225. ASSESSMENT AND PLAN: 1. Severe hyponatremia due to beer potomania. 2. Alcohol abuse, continued pattern. 3. Very poor social and living conditions. 4. The patient will be admitted to the ICU. 5. No IV fluid is needed at this point. Discontinue IV fluid. This is pure potomania and it should improve on its own. Continue to tariff counsel regarding his alcohol abuse. 6. Delirium tremens precautions. 7. Treatment of his cellulitic changes as per the primary team. <ELECTRONICALLY SIGNED> By: Min Calix MD 01/24/20 1517 [id number] Min Calix MD /nt
--- NOTE | 2020-01-24 19:14 | NUR ---
PATIENT CONTINUES ON VENT. SMITH IN PLACE. PATIENT SEDATED ON PROPOFOL. NS STARTED AND CONTINUES WITH MULTIPLE IV ABX. WOUND CARE PERFORMED; RIGHT ELBOW HAS A OPEN AREA; PHOTO TAKEN AND DRESSING APPLIED. PATIENT'S AT BEDSIDE MAJORITY OF DAY; NEEDS FREQUENT REASSURANCE AND RE-EDUCATION FROM STAFF. VSS. SR/ST ON MONITOR. TUBE FEEDING INCREASED FROM 25/HR TO 35/HR THIS SHIFT.
--- NOTE | 2020-01-24 20:20 | NUR ---
Pt's called for an update, her questions were answered and she said she would likely to call back through the night. She was encouraged to call and that her will be well-cared for.
[2020-01-25] VITALS (24 sets, daily range): BP systolic 126–178; BP diastolic 68–95
[2020-01-25 05:21] LABS: ALBUMIN 1.9 g/dL (3.4-5.0); CALCIUM 7.6 mg/dL (8.5-10.1); CREATININE 0.4 mg/dL (0.7-1.3); PHOSPHORUS 2.6 mg/dL (2.5-4.9); POTASSIUM 3.4 mmol/L (3.5-5.1)
--- NOTE | 2020-01-25 10:46 | NUR ---
Dr. Whitaker on unit, told RN to decrease PT's sedation to prepare for a CPAP trial. at bedside made aware of CPAP process. Propofol gtt was titrated down to 20 mcgs/kg/min at 1045. RT was made aware and verbalized understanding. High fall risk precautions in place. RN will continue to monitor.
[2020-01-25 12:02] LABS: BE(vivo) 3.1 mmol/L (-2 to +3); HCO3 26.4 mmol/L (22.0-26.0); PCO2 35.7 mmHg (35.0-45.0); PO2 136.3 mmHg (80.0-100.0); pH 7.487 (7.360-7.450); sO2 98.9 % (92.0-98.0)
--- NOTE | 2020-01-25 17:26 | NUR ---
PT is progressing towards goals. During sedation vacation PT followed commands and opened his eyes to verbal stimulus. CPAP trial today, PT tolerated well, however did not remain alert enough for extubation. Was placed back on assist control. Sedation medication was changed from propofol to precedex. Precedex is at 0.8 mcg/kg/hr. at bedside. Arrived at approximately 0900 and left at 1706. spoke with Dr. Whitaker, Dr. Duran, RT, and RN at bedside multiple times throughout the day. was reminded multiple times to let the PT rest as his heart rate became tachycardiac and hypertensive as she was interacting with him. PT's attempted to record multiple conversations in the room without consent from all parties. RN told PT's that she must get consent from all parties involved before taking an audio recording. She verbalized understanding. Restraints intact. Fall precautions maintained throughout shift. RN will continue to monitor.
[2020-01-26] VITALS (26 sets, daily range): BP systolic 128–176; BP diastolic 67–100
[2020-01-26 05:41] LABS: HEMATOCRIT 31.6 % (42.0-52.0); HEMOGLOBIN 10.5 gm/dL (14.0-18.0); MCH 30.4 pg (26.0-34.0); MCHC 33.4 g/dL (28.0-37.0); MCV 90.8 fL (80.0-100.0); PLATELET COUNT 274 thou/uL (150-400); RBC 3.47 mil/uL (4.50-6.00); RDW 14.5 % (10.5-14.5); WBC 8.2 thou/uL (4.0-11.0)
[2020-01-26 06:11] LABS: CREATININE 0.4 mg/dL (0.7-1.3); POTASSIUM 3.8 mmol/L (3.5-5.1)
--- NOTE | 2020-01-26 06:44 | NUR ---
No significant changes in pt status
[2020-01-26 07:51] LABS: BE(vivo) 0.2 mmol/L (-2 to +3); PCO2 31.2 mmHg (35.0-45.0); PO2 106.6 mmHg (80.0-100.0); pH 7.485 (7.360-7.450); sO2 98.3 % (92.0-98.0)
--- NOTE | 2020-01-26 08:05 | NUR ---
0700. CPAP TRIAL STARTED PER RT. ABG'S DRAWN, RESULTS CALLED BY RT TO DR. URENA. 0800- PT EXTUBATED, 2L NC PLACED. O2 SAT 97%.
--- NOTE | 2020-01-26 09:09 | NUR ---
0845- RN SPOKE TO PT'S MEG ON PHONE. SHE WAS UPDATED ON PT'S CONDITION AND STATES SHE WILL ARRIVE AT 0900 TO SEE PT.
[2020-01-26 09:51] LABS: ABSOLUTE NEUTROPHILS 6.6 thou/uL (1.4-8.2)
--- NOTE | 2020-01-26 15:42 | NUR ---
1415- PT'S BP 176/100. DR RIOJAS PAGERenee AND ORDERS RECEIVED. MEDICATION GIVEN ORDERED AND BP CAME DOWN TO 167/87. PT'S HR INCREASED TO 135-140'S ST AND SUSTAINED. DR. RIOJAS PAGERenee AND ORDERS RECEIVED. MEDICATION GIVEN ORDERED AND HR NOW 112 ST ON TUNNEL HEADING SUPERVISOR. PT'S TEMP VIA SMITH CATHETER PROBE IS CURRENTLY 37.6, DR. RIOJAS MADE AWARE OF TEMP, AWAITING ORDERS FOR RECTAL ACETAMINOPHEN. WILL CONTINUE TO CLOSELY MONITOR PT. SPO2 REMAINS >98% ON 2L NC. PT NOT IN ANY DISTRESS AT THIS TIME AND WAS UNAWARE OF INCREASED BLOOD PRESSURE AND/OR INCREASED HR.
[2020-01-26 22:49] LABS: HEMATOCRIT 32.5 % (42.0-52.0)
--- NOTE | 2020-01-26 22:50 | NUR ---
UPON INTIAL ASSESSMENT, PT WAS ORIENTED TO SELF AND THE MONTH. HE WAS UNABLE TO VERBALIZE HE WAS IN THE HOSPITAL. NO C/O PAIN OR SOA. SPO2 >90% ON 2L NC. ORAL CARE PROVIDED. BETADINE APPLIED TO BILATERAL HEELS. ANTIFUNGAL CREAM APPLIED TO BILATERAL GLUTES AND GROIN. REPOSITIONED WITH WEDGES. PT'S (MEG) CALLED AROUND 0 AND WAS PROVIDED UPDATE ON PT STATUS. ALL QUESTIONS ANSWERED. PT IS RESTING QUIETLY IN BED AT THIS TIME. PROGRESSING VERY SLOWLY TOWARD POC GOALS. WILL CONTINUE TO MONITOR DURING THE NIGHT.
[2020-01-26 23:22] LABS: CALCIUM 7.7 mg/dL (8.5-10.1); CREATININE 0.3 mg/dL (0.7-1.3); PHOSPHORUS 2.8 mg/dL (2.5-4.9)
[2020-01-27] VITALS (9 sets, daily range): BP systolic 126–155; BP diastolic 76–94
--- NOTE | 2020-01-27 02:36 | NUR ---
0235 - CALLED UNIT FOR UPDATE. ALL QUESTIONS ANSWERED.
--- NOTE | 2020-01-27 03:39 | NUR ---
PT HAS BEEN SLEEPING MOST OF THE NIGHT. RESPIRATIONS EVEN AND UNLABORED. COMPLETE BED BATH GIVEN. PT HAS HAD ONE LOOSE STOOL SO FAR THIS SHIFT. REPOSITIONED Q2H TO PREVENT FURTHER SKIN BREAKDOWN. ANTIFUNAL AND BARRIER CREAM APPLIED TO GLUTEAL WOUNDS. GOOD URINE OUTPUT VIA SMITH. FALL PRECAUTIONS IN PLACE. PROGRESSING SLOWLY TOWARD POC GOALS. WILL CONTINUE TO MONITOR FURTHER.
[2020-01-27 06:00] LABS: HEMATOCRIT 32.7 % (42.0-52.0); HEMOGLOBIN 11.3 gm/dL (14.0-18.0); MCHC 34.5 g/dL (28.0-37.0); MCV 89.9 fL (80.0-100.0); PLATELET COUNT 305 thou/uL (150-400); RBC 3.64 mil/uL (4.50-6.00); RDW 14.8 % (10.5-14.5); WBC 7.6 thou/uL (4.0-11.0)
[2020-01-27 06:09] LABS: CALCIUM 7.6 mg/dL (8.5-10.1); CREATININE 0.3 mg/dL (0.7-1.3); MAGNESIUM 1.9 mg/dL (1.8-2.4)
[2020-01-27 08:44] LABS: PLATELET ESTIMATE NORMAL
--- NOTE | 2020-01-27 17:22 | NUR ---
PT CARE ASSUMED APPROX 1200. ASSESSMENTS CHARTED. PT DENIES PAIN AND SOA. REPORTS ANXIETY. DR JOSEPH NOTIFIED ON ROUNDS. VSS. AT BEDSIDE MOST OF SHIFT. PT ANXIETY LEVEL IMPROVED AFTER BEING MEDICATED. PT'S ORAL INTAKE IMPROVING. NO DISTRESS NOTED.
--- NOTE | 2020-01-27 19:19 | NUR ---
PT HAD EKG DONE THAT SHOWED MINIMAL AT DEPRESSION THAT IS NOT NOTED ON BASELINE EKG. DR TSANG WAS PAGED WITH NO RETURN CALL. VSS AND PT DENIES CHEST PAIN. WILL PASS ON TO NIGHT NURSE TO F/U WITH NOC HAND MEAT SALTER.
--- NOTE | 2020-01-28 04:14 | NUR ---
PATIENS CARES WERE ASSUMED AT SHIFT CHANGE. PATIENT WAS ASSESSED AND MEDS WERE PASSED. PATIENTS IS LOOKING FORWARD TO HIS WIFES VISIT TODAY. PATIENT DID SLEEP MOST OF THIS SHIFT. HOURLY ROUNDS WERE DONE. THE BED IS IN A LOW AND LOCKED POSITION
[2020-01-28 05:21] VITALS: BP 141/82
--- NOTE | 2020-01-28 08:09 | EKG ---
[facility] [place] [address] ELECTROCARDIOGRAM REPORT Name: LESTER GERONIMO Room #: 217-P ADM IN M.R.#: [id number] Admission: 01/22/20 Attend Phys: Mike Solo MD Discharge: Date of : 56 Report #: [id number] THIS REPORT FOR: cc: LAVONNE - No family physician/PCP LAVONNE - No family physician/PCP Ronni Shirley MD [facility] THIS REPORT FOR: //name// [facility] Test Date: 2020-01-27 Test Time: 18:44:30 Pat Name: LESTER GERONIMO Department: Room: 217 Gender: M Warehouse And Receiving Supervisor: Kash MURO : 1960 Requested By: Esther Galvez Order Number: [id number] MD: Ronni Shirley Measurements Intervals [place] Rate: 117 P: 57 [place]: 102 QRS: 56 QRSD: 108 T: 54 QT: 343 QTc: 479 Interpretive Statements Sinus tachycardia Minimal ST depression, anterior leads Borderline prolonged QT interval Compared to ECG 01/22/2020 07:36:22 ST (T wave) deviation now present Electronically Signed On 01-28-2020 8:09:28 CDT by Ronni Shirley [email or web address] <ELECTRONICALLY SIGNED> By: Ronni Shirley MD, [facility] 01/28/20 0809 1844 43 Ronni Shirley MD, [facility] /EPI
[2020-01-28 08:19] VITALS: BP 130/87
--- NOTE | 2020-01-28 11:27 | NUR ---
Called customer service of patients insurance. patient has [facility] Plan 2. effective 09/03/19. Per cutomer service patient has benefit for skilled and acute rehab. Limited medical PPO plan. Inpatient stay for skilled or acute rehab room and board only covered. All others services are billed to patient. patient can submit bills and determine if qualifies for multiplan discount. Covered service is $500 a day up to 365 days. To determine network skilled or acute rehab need to call Multiplan .
[2020-01-28 11:44] VITALS: BP 131/84
[2020-01-28 15:44] VITALS: BP 121/77
--- NOTE | 2020-01-28 17:11 | NUR ---
PT CARE ASSUMED APPROX 0700. ASSESSMENTS CHARTED. PT DENIES PAIN AND SOA. MANAGING PT'S ANXIETY AND NICOTINE WITHDRAWLS PER POC. SMOKING CESSATION POC CHANGED AND PT REPORTS BETTER MANAGEMENT WITH NEW POC. AT BEDSIDE MOST OF SHIFT. PT TO CHAIR MOST OF SHIFT. OFFLOADING PRESSURE TO PRESSURE WOUNDS BY RECLINING CHAIR INTERMITTENTLY. PT DOES NOT COMPLY LONG AND REFUSES TO GO TO BED TO RELIEVE WOUND PRESSURE. SPOUSE AND PT EDUCATED. PT RESTING COMFORTABLE IN RECLINER. HAS LEFT BEDSIDE. NO DISTRESS NOTED.
[2020-01-28 20:00] VITALS: BP 126/75
[2020-01-29 04:00] VITALS: BP 117/81
[2020-01-29 08:00] VITALS: BP 133/84
[2020-01-29 12:00] VITALS: BP 118/75
--- NOTE | 2020-01-29 12:46 | NUR ---
Discussed with insurance plan. Discussed higher out of pocket cost for acute rehab. discusses she cannot see patient and be with him at skilled. She discussed she can assist him with staying at hospital and no COVID on unit. Discussed she would be billed but opportunity for bryce tomas. She plans to discuss with patient. Rehab liason also to meet with patient and .
--- NOTE | 2020-01-29 15:49 | NUR ---
Dr Barrios met with patient and accepted to [facility]. Patient expressed he was not going to [facility]. Patient accepted if willing to transfer to [facility] and participate with therapy.
[2020-01-29 16:00] VITALS: BP 138/92
--- NOTE | 2020-01-29 17:56 | NUR ---
GOLD BEATER SPOKE WITH PATIENT AND PATIENT'S REGARDING ACUTE REHAB STAY ON 5N. EXPLAINED THAT PATIENT'S INSURANCE ONLY COVERED $500.00 A DAY AND REHAB STAY CHARGES WOULD BE MUCH GREATER THEN THE INSURANCE PAYMENT. EXPLAINED THAT ANY REMAINING BALANCE WOULD NEED TO BE PAID BY PATIENT/PATIENT'S . ALSO SPOKE ABOUT THE POSSIBITY OF COMPLETING A CASPER APPLICATION. (ADMITTING TO GET APPLICATION TO PATIENT.) EXPLAINED THAT IT WOULD TAKE TIME TO DETERMINE IF PATIENT WOULD BE ELIGIBLE AND THIS WOULD NOT BE KNOW PRIOR TO PATIENT'S ACUTE HOSPITAL DISCHARGE/ADMISSION TO ACUTE REHAB PATIENT IS WANTING TO GO HOME AND IS WANTING PATIENT TO GO TO 5[facility]. PATIENT AND TO TALK AND MAKE A DECISION. DR. MOSQUEDA LATER VISITED WITH PATIENT AND . PATIENT CAN COME TO REHAB IF PATIENT IS WILLING. IC DESIGN ENGINEER INFORMED.
[2020-01-29 19:40] VITALS: BP 137/90
[2020-01-29 20:06] LABS: ADENOVIRUS Negative (Negative); INFLUENZA A Negative (Negative); INFLUENZA B Negative (Negative); METAPNEUMOVIRUS Negative (Negative); PARAINFLUENZA 1 Negative (Negative); PARAINFLUENZA 2 Negative (Negative); PARAINFLUENZA 3 Negative (Negative); RHINOVIRUS Negative (Negative); RSV A Negative (Negative); RSV B Negative (Negative)
--- NOTE | 2020-01-29 20:09 | NUR ---
ASSUMMED PT CARE AT APPROXIMATELY 0700. PT A&O X3. ASSESSMENT CHARTED. FALL PRECAUTIONS IN PLACE. PT DENIES HAVING CHEST PAIN. PT DENIES HAVING SOB. PT DENIES HAVING ACUTE PAIN. PT CALM AT BEGINNING OF SHIFT. ARRIVED. AND PT STARTED TO ARGUE. AFTER A COUPLE HOURS OF PT AND ARGUING, I ASKED TO LEAVE. PT AND STARTED TO CALL EACH OTHER. PT STILL AGITATED AND CONFUSED. GAVE PRN MEDICATIONS FOR AGITATION. PT STILL AGITATED, IMPULSIVE, AND TRYING TO MOVE TELE. INFORMED DR. BUNN AND DR. JOSEPH. DR. JOSEPH GAVE NEW MED ORDER. NEW MED ORDER IMPLEMENTED BEFORE SHIFT CHANGE. INFORMED BULLDOGGER RN OF PT'S AGITATION AND . BULLDOGGER RN STATED UNDERSTANDING AND DENIED HAVING FURTHER QUESTIONS. VITAL SIGNS STABLE. BLOOD SUGARS STABLE. PT SITTING IN BED. FREQUENT EDUCATION GIVEN REGAURDING POC.
--- NOTE | 2020-01-30 03:59 | NUR ---
ASSUMED PT CARE AT 1900. PT IS ALERT BUT CONFUSED AND FORGETFUL. PT KEPT STATING THAT HE WANTED TO GO HOME. PT SEEMS AGITATED. MEDICATION ADMINISTERED. PT IS ABLE TO CALM DOWN AND RELAXED IN BED. FALL PRECAUTION IN PLACE. ASSESSMENT COMPLETED AND DOCUMENTED. SCHEDULED MEDS ADMINISTERED TO PT. TOLERATED PO INTAKE. DENIES ANY PAIN, PATIENT SLEEPS THROUGH THE NIGHT. CONTINUE TO MONITOR PT. DENIES ANY NEEDS AT THIS TIME.
[2020-01-30 04:00] VITALS: BP 153/96
[2020-01-30 07:57] VITALS: BP 125/77
--- NOTE | 2020-01-30 10:31 | NUR ---
Pt has been accept for an acute rehab stay on 5[facility]. Discussed with the pt at bedside and Kathleen via phone. Pt anxious to go home but agreeable to short term rehab stay to increase strength and independence with mobility and adl's, work on a plan for his sobriety- counseling/AA, and give his time to clean up and do some renovations on the home. The pt is A&ox4 this morning. He is motivated and was able to work with therapy this morning. He is eating better as well. Pt and spouse aware of insurance coverage and limitations of $500 a day. They will try to complete a bryce eval or make a payment plan for any overage. Pt may need a FWW at al from rehab. DC to 5N today. [facility]N cm to follow.
[2020-01-30] MEDS ORDERED: PREDNISONE 20 M20 M1 PO (11:29)
[2020-01-30] MEDS ORDERED: IPRAT-ALBUT 0.5-3 ML INH (11:29)
[2020-01-30] MEDS ORDERED: METOPROLOL TART25 MG PO (11:29)
[2020-01-30] MEDS ORDERED: NEOMYCIN/BACIT3.5 G1 OPHTHALMIC (11:29)
[2020-01-30] MEDS ORDERED: K-DUR 20 MEQ T20 MEQ PO (11:29)
[2020-01-30] MEDS ORDERED: SEROQUEL 25 MG25 M1 PO (11:29)
[2020-01-30] MEDS ORDERED: VITAMIN D21250 MC1 PO (11:29)
[2020-01-30] MEDS ORDERED: VITAMIN B-1100 M2 PO (11:29)
[2020-01-30] MEDS ORDERED: PEPCID20 MG PO (11:29)
[2020-01-30] MEDS ORDERED: NICOTINE LOZENGE2 M1 BUCCAL (11:29)
[2020-01-30] MEDS ORDERED: PRENATAL PO (11:29)
[2020-01-30 12:00] VITALS: BP 110/73
== END 2020-01-30 13:59 | DRG 871 ==
LOC: ER 05:05 → EROBS 06:16 → ICU 06:16 → 2N 06:16 → ICU 06:16 → 2N 01-27 11:57
PROVIDERS: Emergency Medicine; Hospitalist; Internal Medicine; Internal Medicine Nephrology; Nurse Practitioner; Pediatrics; Specialist; ADMIT Internal Medicine; ATTEND Internal Medicine
PROC: 5A1945Z Respiratory Ventilation, 24-96 Consecutive Hours (ICD-10-PCS; principal; 2020-01-22)
PROC: 0BH17EZ Insertion of Endotracheal Airway into Trachea, Via Natural or Artificial Opening (ICD-10-PCS; principal; 2020-01-22)
DX: A41.9 Sepsis, unspecified organism (principal); G92 Toxic encephalopathy; E43 Unspecified severe protein-calorie malnutrition; J96.21 Acute and chronic respiratory failure with hypoxia; J96.22 Acute and chronic respiratory failure with hypercapnia; E87.1 Hypo-osmolality and hyponatremia; F10.239 Alcohol dependence with withdrawal, unspecified; Z68.1 Body mass index [BMI] 19.9 or less, adult; G62.9 Polyneuropathy, unspecified; E16.2 Hypoglycemia, unspecified; L89.320 Pressure ulcer of left buttock, unstageable; L89.310 Pressure ulcer of right buttock, unstageable; L30.8 Other specified dermatitis; I73.9 Peripheral vascular disease, unspecified; D64.9 Anemia, unspecified; Z20.828 Contact with and (suspected) exposure to other viral communicable diseases; F17.210 Nicotine dependence, cigarettes, uncomplicated; I34.0 Nonrheumatic mitral (valve) insufficiency; L89.159 Pressure ulcer of sacral region, unspecified stage; R62.7 Adult failure to thrive; D86.9 Sarcoidosis, unspecified; S00.83XA Contusion of other part of head, initial encounter; Z88.8 Allergy status to other drugs, medicaments and biological substances; W18.39XA Other fall on same level, initial encounter; Y93.89 Activity, other specified; Y92.89 Other specified places as the place of occurrence of the external cause; Y99.8 Other external cause status
CPT/HCPCS: 10078; 10081; 10203

== ENCOUNTER 2020-01-30 12:16 | Inpatient (IN) | payer OTHER ==
[~2020-01-30] VITALS: Ht 172.7 cm; Wt 51.1 kg
[~2020-01-30 12:16] MED LIST changes: +IPRAT-ALBUT 0.5-3 ML INH; +K-DUR 20 MEQ T20 MEQ PO; +METOPROLOL TART25 MG PO; +NEOMYCIN/BACIT3.5 G1 OPHTHALMIC; +NICOTINE LOZENGE2 M1 BUCCAL; +NOHOMEMEDICATIONS; +PEPCID20 MG PO; +PREDNISONE 20 M20 M1 PO; +PRENATAL PO; +SEROQUEL 25 MG25 M1 PO; +VITAMIN B-1100 M2 PO; +VITAMIN D21250 MC1 PO
--- NOTE | 2020-01-30 14:29 | NUR ---
new to acute rehab today. cm notified by pt and hellen have question about state lady per vignesh. cm called and spoke with pt via phone call " independent at home. yes i drive. i was wrong i drink and sometimes i don't eat."vignesh. then spoke with hellen who stated " i need to get this all cleared up with sated lady and don't remember her name, i have receipt for food, never denied him food or care"/ hellen. cm left message for valorie oslis at [facility] and provided and pt for [facility]. prior to hospital and acute rehab, it was reported he was drinking, not getting up and going to restroom. last admit to hospital he left ama from acute hospital. pt not driving for months rt care broken, live in house with 3 little steps to front porch then no stair inside. will cont following as needed for dc needs.
[2020-01-30 20:25] VITALS: BP 106/60
--- NOTE | 2020-01-30 21:03 | NUR ---
ASSUMED CARE OF PT AT 1415 WHEN PT BROUGHT TO UNIT. RECEIVED REPORT FROM RITIKA GONZALES PRIOR TO PT BEING BROUGHT TO UNIT. ADMISSION HX AND ASSESSMENT COMPLETED BY FELLOW NURSE. ADMISSION VITAL SIGNS, WEIGHT COMPLETED. MEDICAITONS FAXED TO PHARMACY. WITH PT DURING TRANSFER TO UNIT. ACCU CHECKS ACHS. PT REQUESTS NICOTINE LOZANGES. PT REFUSED SERROQUEL UNTIL LOZANGES AVAILABLE. ONCOMING NURSE AWARE OF LATE MEDICAITON ADMINISTRATION AT TIME OF SHIFT CHANGE. WOUNDS TO SACRUM/BUTTOCKS NOTED ON ADMISSION. WAFFLE CUSHION , W/C CUSHION, AND LOW AIRLOSS BED PUMP ORDERED. FALL PRECAUTIONS IN PLACE AND NURSING WILL CONTINUE TO MONITOR.
[2020-01-31 05:21] LABS: HEMATOCRIT 37.9 % (42.0-52.0); HEMOGLOBIN 12.4 gm/dL (14.0-18.0); MCH 29.9 pg (26.0-34.0); MCHC 32.6 g/dL (28.0-37.0); MCV 91.7 fL (80.0-100.0); RBC 4.14 mil/uL (4.50-6.00); RDW 14.9 % (10.5-14.5); WBC 8.2 thou/uL (4.0-11.0)
--- NOTE | 2020-01-31 05:21 | NUR ---
INCONTINTINENT OF URINE TWICE TONIGHT, [facility], CHANGE OF CLOTHES, BUTTOCK WOUND RINSED AND SPRAYED WITH WOUND CARE SPRAY AND COVERED WITH Z-GUARD.
[2020-01-31 06:15] LABS: CALCIUM 8.3 mg/dL (8.5-10.1); CREATININE 0.4 mg/dL (0.7-1.3); POTASSIUM 4.1 mmol/L (3.5-5.1)
[2020-01-31 07:20] VITALS: BP 108/67
[2020-01-31 08:02] VITALS: BP 108/67
--- NOTE | 2020-01-31 15:02 | NUR ---
ASSUMED CARE OF PT AT 0700. ALERT AND ORIENTED X4. REPORTS SLEPT GOOD. DENIES PAIN. OT WORKED WITH PT THIS AM AND ASSISTED WITH SHOWER. PT REQUESTS NICOTINE LOZANGES Q2HR. WOUNDS TO SACRUM/BUTTOCKS APPLIED WITH ZGUARD. WAFFLE CUSHION , W/C CUSHION, AND LOW AIRLOSS BED PUMP ORDERED. OFFERED SUPPORTIVE CARE. REASSESSMENT PER CHART. MORNING MEDS GIVEN WITH THIN WATER, TOLERATES WELL. PT UP WITH CGA AND GAITBELL. DENIES PAIN. PARTICIPATED WITH THERAPY AND TOLERATE WELL. COMES TO VISIT PT NOW.FALL PRECAUTIONS IN PLACE AND NURSING WILL CONTINUE TO MONITOR.
[2020-01-31 19:25] VITALS: BP 109/60
--- NOTE | 2020-01-31 19:29 | NUR ---
RECEIVED REPORT FROM ARNULFO (4W) RN PRIOR TO PT BEING BROUGHT TO UNIT. PT ADMITTING FOR PROXIMAL MYOPATHY, ARF, AND SEVERE RHABDOMYOLYSIS. FOLLOW UP BY DR. PARAS FIELD. PT ALERT AND ORIENTED X3 FORGETFUL AT TIME. SHE LIVES HOME WITH HER SON, DENIES USING CANE OR WALKER AT HOME. ADMISSION HX AND ASSESSMENT COMPLETED. ADMISSION VITAL SIGNS, WEIGHT COMPLETED. PT WAS ON 2L OF OXYGEN. DENIES USING O2 AT HOME. TOOK OFF O2 AND PT SAT 96% ON RA NOW. TIME OF SHIFT CHANGE. GAVE REPORT TO NIGHT NURSE TO FAX MEDICATION LISTS AND CALL ADMISSION CONSULT. NOTICED NA 126 TODAY AND 111/[address] FIELD TO CONTINUE TO FOLLOW UP WITH THESE. DISCUSSED WITH PT ABOUT REHAB AND ENCOURAGED PT TO PARTICIPATE WITH THERAPY TO GET STRONGER. PT SIGNED CONSENT. PT ATE 25% OF DINNER. NOT ABLE TO CHEW WELL D/T NEW LOWER PARTIAL PLATE. OT/PT AND MAY ASK ST TO EVALUATE HER SWALLOWING AND CHEWING AND ADJUST DIET NEED. FALL PRECAUTIONS IN PLACE AND NURSING WILL CONTINUE TO MONITOR.
--- NOTE | 2020-02-01 00:37 | NUR ---
PT ALERT AND ORIENTED X 4, FORGETFUL. TRANSFERRED TO BED AT WITH ASSIST X 1. VOIDING ADEQUATE AMTS CLEAR YELLOW URINE PER URINAL. ALSO INCONT OF URINE AT TIMES. PT DENIES PAIN OR DISCOMFORT. BED ALARM ON FOR SAFETY. PT CHECKED ON HOURLY ROUNDS.
[2020-02-01 08:53] VITALS: BP 118/67
--- NOTE | 2020-02-01 14:51 | NUR ---
ASSUMED CARE OF PT AT 0700. ALERT AND ORIENTED X4. REPORTS DIDN'T SLEEP GOOD LAST NIGHT, DISCUSSED ABOUT SLEEP AID, HE SAID HE WOULD LIKE TO TRY. NOTICED PT HAS SOME WHITE PATCH ON THE BACK OF HIS THROAT. NOTIFIED DR. BUNN AND OBTAIN ORDER FOR MELATONIN AND NYSTATION. PT DENIES PAIN, SOB, N/V. HAS GOOD APPETITE. PT REQUESTS NICOTINE LOZANGES Q2HR. WOUNDS TO SACRUM/BUTTOCKS APPLIED WITH ANTIFUNGAL ORDERED. WAFFLE CUSHION , W/C CUSHION, AND LOW AIRLOSS BED PUMP USES WHEN IN BED. OFFERED SUPPORTIVE CARE. REASSESSMENT PER CHART. PT HAD GOOD BM THIS AM. HAS URGENCY URINATION. OFTEN WET HIMSELF AFTER URINAL. ENCOURAGED PT TO CALL FOR ASSIST. MORNING MEDS GIVEN WITH THIN WATER, TOLERATES WELL. PT UP WITH CGA AND GAITBELL. PARTICIPATED WITH THERAPY AND TOLERATE WELL.DISCUSSED ABOUT WOUND CARE AND ENCOURAGED PT TO ALTERNATE WITH SITTING AND LAYING DOWN. PT RESTING IN BED 2X BETWEEN THERAPY. TRIED TO URINATE BY HIMSELF AFTER NAP. WET THE WHOLE FLOOR. HOUSE KEEPER CAME TO ASSISTED WITH DISINFECTED. BLE DRY, LOTION APPLIED. EDEMA IS GETTING BETTER, ENCOURAGED PT TO ELEVATE HIS LEGS WHEN SITTING. FALL PRECAUTIONS IN PLACE AND NURSING WILL CONTINUE TO MONITOR.
[2020-02-01 19:40] VITALS: BP 96/56
--- NOTE | 2020-02-02 00:47 | NUR ---
PT ALERT AND ORIENTED X 4. AMB TO BR WITH WALKER AND ASSIST X 1 WITHOUT DIFFICULTY. IMPULSIVE AT TIMES. PT DENIES PAIN OR DISCOMFORT. CALLS OUT FREQUENTLY FOR VARIOUS THINGS. UP IN CHAIR AT THIS TIME. CHAIR ALARM ON FOR SAFETY. PT HAS BEEN AWAKE ALL NIGHT SO FAR. MELATONIN GIVEN AT HS ORDERED.
[2020-02-02 14:22] VITALS: BP 107/64
--- NOTE | 2020-02-02 14:52 | NUR ---
WOUND CATRE COMPLETED AT 1400-NOTED TO HAVE MODERATE AMOUNT DRAINAGE/PREVIOUS OINTMENT APPIED THAT IS MOSTLY OFF WHITE COLORED WITH HINT OF GREENISH CAST-IS NOT FOUL SMELLING-COCYX/GLUTEAL CLEFT WOUND WITH SMALL AMOUNT SERROUS DRAINAGE AND PT DOES REPORT PAIN UPON CLEANSING-AREAA CLEANSED WITH SOAP AND H20 AND ANTIFUNGAL OINTMENT APPLIED PER ORDER. ENCOURAGED TO LAY IN BED TO DECREASE PRESSURE BUT PT REFUSES-WAFFLE CUSHION IN CHAIR APPEARS DEFLATED-UNABLE TO REINFLATE SO NEW CUSHION PROVIDED-PT AGAIN ENCOURAGED TO LAY IN BED BUT REFUSES. WILL CONTINUE TO MONITOR
--- NOTE | 2020-02-02 16:40 | NUR ---
FEET ASSESSED AND CLEANSED WITH SOAP AND H20 PER ORDER-BETADINE APPLIED AND LEFT OPEN TO AIR-PT REFUSES TO LAY IN BED ANBD ELEVATE FEET BUT WITH MUCH INSISTANCE FROM AND THIS RN DID ALLOW SOCKS TO BE LEFT OFF AND FEET ELEVATED INH RECLINER. HAS BEEN NOTED TO HAVE INCREASE IN CONFUSION AND AGITATION SINCE APPROX. 1330-CALLING VARIOUS FAMILY MEMBERS AND TELLING THEM HE IS BEING DC'D TOMORROW-OVERHEARD YELLING AT ON PHONE STATING "SHE WON'T COME AND GET ME" IS IMPULSIVE GETTING UPAND ATTEMPTING TO WALK ON OWN DESPITE VERY UNSTEADY GAIT-URINATED LARGE AMOUNT CLEAR YELLOW LIQUID IN CUP STATING "I CAN'T FIND THE URINAL" WHICH WAS SITTING RIGHT NEXT TO HIM. RIGHT FOOT REDDENED,APPROX 2 PLUS NON-PITTING EDEMA-SLIGHTLY WARM TO TOUCH,LEFT FOOT LESS SWOLLEN NO REDNESS,PEDAL PULSE PALP BILAT-STRONGER ON RIGHT. BOTTOMS OF BOTH FEET PEELING,LARGE AREAS OF FLAKING SKIN-HEELS BOGGY BUT NO OPEN AREAS NOTED.
[2020-02-02 20:25] VITALS: BP 100/66
--- NOTE | 2020-02-03 03:44 | NUR ---
ASSUMED PT CARE AT APPROX 1900.PT WAS OBSERVED SITTING UP IN THE RECLINER IN HER ROOM AT SHIFT CHANGE.PT DENIED PAIN/N/V.TX TO HIS SACRUM COMPLETED.PT REF TX TO HIS HEELS.PT FINALLY WENT TO BED AT 2200 AND HAS BEEN SLEEPING SINCE THEN.PT UP WITH PRIYA/GAIT BELT AND WALKER TO THE BR,GOOD ENDURANCE NOTED.PT'S CALLED THE UNIT AT 0115 TO INQUIRE ABOUT PT,SHE WAS NOTIFIED THAT PT HAS BEEN IN BED SLEEPING.BLE EDEMA NOTED FEET ELEVATED WITH PILLOW.NICOTINE. PT REQUESTED FOR THE NICOTINE LOZENGES Q2 UNTIL HE SLEPT.URINAL AT BEDSIDE WITH GOOD OUTPUT.FALL PRECAUTIONS IN PLACE WHILE PT WAS IN THE CHAIR AND THE BED.CALL LIGHT WITHIN REACH.HOURLY ROUNDS MAINTAINED.
[2020-02-03 06:20] VITALS: BP 100/66
--- NOTE | 2020-02-03 10:34 | NUR ---
cm returned voice message from hellen " someone called state not sure if it is on me, or house or what. vignesh did speak with stated. he get confused and he spoke with someone from stated and just answer no to call the question. he have food he just choose to not eat he drinks. i want him to have neuro and pysch eval"/hellen . let her know would pass on information to bedside staff and md.
--- NOTE | 2020-02-03 14:12 | NUR ---
PT CONCERNED ABOUT STAYING UNTIL MONDAY. HE STATED THAT HE WANTS TO GO HOME TOMORROW. HE WAS ABLE TO GET HIS MOTHER'S OK TO MOVE IN WITH HER TEMPORARILY, AND SHE IS RETIRED AND ABLE TO PROVIDE 20/02 SUPERVISION. MOTHER'S NAME IS LANA, AND SHE IS ABLE TO DRIVE PT TO APPOINTMENTS. PT IS CONTACTING HIS MOTHER AND WILL GIVE US HER CONTACT INFORMATION TO CONFIRM HER AVAILABILITY.
--- NOTE | 2020-02-03 17:24 | NUR ---
ASSUMED CARE AT 1500. PATIENT IS ALERT AND ORIENED X2-3. PATIENT HAS HX OF RESP FAILURE. LUNGS ARE DEMINISHED IN THE BASES. PATIENT IS IMPULSIVE. SUNDOWNS AND NO INSIGHT. PATIENT IS UP WITH SBA. PATIENT WONT LET YOU USE GAIT BELT TO TRANSFER TO BATHROOM. UP IN CHAIR FOR MEALS. FALL AND SAFETY PROTOCOLS IN PLACE. DENIES PAIN AT THIS TIME. CONTINUES TO PROGRESS SLOWLY TOWARD D/C GOALS. PLAN D/C TO HOME WITH ON .
--- NOTE | 2020-02-03 18:36 | NUR ---
LANA WARNING MOTHER TO [phone] CELL. PATIENT WANTS TO GO TO HIS MOTHERS HOUSE, BUT NOT UNTIL THURS PER DR. MOSQUEDA. IF HE WANTS TO GO AMA HE GETS NO ASSISTANCE.
[2020-02-03 19:29] VITALS: BP 94/63
--- NOTE | 2020-02-04 01:30 | NUR ---
IMPULSIVELY UP TO VOID AT BEDSIDE OR TOILET WITH SBA, NOT WAITING FOR GAIT BELT OR WALKER USE. Z-GUARD APPLIED WHILE STANDING. FREQUENT REQUESTS FOR NICORETTE LOZENGES.
[2020-02-04 05:48] LABS: HEMOGLOBIN 10.9 gm/dL (14.0-18.0); MCH 31.2 pg (26.0-34.0); MCHC 32.1 g/dL (28.0-37.0); MCV 97.1 fL (80.0-100.0); PLATELET COUNT 475 thou/uL (150-400); RDW 16.5 % (10.5-14.5); WBC 10.2 thou/uL (4.0-11.0)
[2020-02-04 05:52] LABS: CALCIUM 8.4 mg/dL (8.5-10.1); CREATININE 0.4 mg/dL (0.7-1.3); MAGNESIUM 1.8 mg/dL (1.8-2.4)
[2020-02-04 08:00] VITALS: BP 108/74
--- NOTE | 2020-02-04 08:00 | NUR ---
PT SITTING IN CHAIR. PT STATED HE FEELS GOOD TODAY AND NO PAIN. PT WANTING TO TALK TO DR. MOSQUEDA ABOUT HIS FEET. PT FEET BILATERAL ARE SWOLLEN WITHOUT PITTING. PT LUNGS CLEAR, DIMINISHED TO BASES. PT DIDN'T WANT TO TAKE MEDS UNTIL FINISHED WITH THERAPY. PT UP WITH STAND-BY ASSIST. PT LBM January. THERAPY IS PUTTING ON WRAPPS TO LOWER EXT. PT WANTING NICOTINE LOZENGER.
--- NOTE | 2020-02-04 08:37 | NUR ---
ADM NICOTINE NÉSTOR 2MG AT THIS TIME.
--- NOTE | 2020-02-04 10:00 | NUR ---
PT WITH ST, PT GETTING VIDEO SWALLOW. PT DID TAKE MEDS AFTER PT AND WANTED LARGER PILLS CUT IN HALF. PT DID FINE WITH SWALLOWING MEDS.
--- NOTE | 2020-02-04 10:48 | NUR ---
PT BACK FROM VIDEO SWALLOW, REC THIN WATER WITH CHIN TUCK AND ALSO CAN HAVE MEDS WITH APPLESAUCE WHOLE. ADM NICOTINE LOZENGER AT THIS TIME. PT WANTED ANOTHER LOZENGER ABOUT AN HOUR AFTER FIRST.
[2020-02-04 11:07] LABS: ABSOLUTE NEUTROPHILS 7.5 thou/uL (1.4-8.2); MYELOCYTES 1 %; NUCLEATED RBCS 1 /100WBC
[2020-02-04 11:08] LABS: ANISOCYTOSIS SLIGHT; POIKILOCYTOSIS SLIGHT
--- NOTE | 2020-02-04 12:28 | NUR ---
team meeting, recommendation: bilat feel swelled with wraps. skin wound care. hellen has reported that she is going to clean up house before he comes home. follow up with neuro dorinda outpt [phone]. has concerns for him to go stay with his elderly mom, to be able to care for him. dc 9th home with , he will need assist with bills and pills. works on weekend. outpt [facility]. no driving until cleared by md, refrain from ethol abusive and smoking. will cont following as needed for dc needs.
--- NOTE | 2020-02-04 12:51 | NUR ---
ADM NICOTINE 2MG NÉSTOR. AT THIS TIME. PT FINISHED LUNCH.
--- NOTE | 2020-02-04 14:45 | NUR ---
ADM NICOTINE 2MG LOZENGER AT THIS TIME. PT STATED HIS IS ON HER WAY TO SEE HIM.
--- NOTE | 2020-02-04 18:37 | NUR ---
ASSUMED CARE AROUND 1515 PT A&O X 3 FAMILY AT BEDSIDE NO ACUTE DISTRESS NOTED. VSS STABLE O2 ON RA. DENIES PAIN OR DISCOMFORT. SITTING IN RECLINER, CALL LIGHT WITHINI REACH, WILL CONTINUE TO MONITOR PER POC.
[2020-02-04 19:20] VITALS: BP 107/56
--- NOTE | 2020-02-05 02:13 | NUR ---
assumed care at approx 1900 evening 02/03. pt sitting up in recliner at change of shift. pt alert and oriented x4, appropriate and cooperative. pt took hs meds with water tolerating well. pt voiding per urinal and also up to bathroom. pt somewhat impulsive and reminded to call before getting up. pt taking nicotine lozenges every 2 hrs. pt appears to be sleeping at present. bed alarm on and call light in reach. will continue to monitor.
[2020-02-05 08:08] VITALS: BP 127/69
--- NOTE | 2020-02-05 09:08 | NUR ---
ASSUMED CARE AT 0700. PATIENT IS ALERT AND ORIENTED X4. PATIENT SHULTZ'S, HORTICULTURE SUPERINTENDENT ARE EQUAL. LUNGS ARE CLEAR AND DEMINISHED. ABD IS SOFT WITH BSX4. VOIDING DANITA COLORED URINE. UP IN THE CHAIR FOR MEALS. WOUND TO PATIENTS COCCYX CLEANED, AND TX COMPLETED WITH NEW DRESSING IN PLACE. WOUND CARE NURSE HERE TO SEE COCCYX WOUND. FALL AND SAFETY PROTOCOLS IN PLACE. DENIES PAIN AT THIS TIME. CONTINUES TO PROGRESS TOWARDS D/C GOALS. WILL CONTINUE TO MONITER.
[2020-02-05 09:58] LABS: CALCIUM 8.6 mg/dL (8.5-10.1); CREATININE 0.5 mg/dL (0.7-1.3)
--- NOTE | 2020-02-05 13:03 | NUR ---
faxed referral to alisson mejia , left message for herman hudson with [facility] [phone] for outside support rt ethol use.
[2020-02-05 19:17] VITALS: BP 123/70
--- NOTE | 2020-02-06 01:52 | NUR ---
assumed care at approx 1900 evening 02/04. pt alert and oriented x4 somewhat forgetful at times needing reminders to not get up by himself and to call out. pt took hs meds with water tolerating well. pt incontinent of large amt urine tonight and needing complete bed change and clothing change. pt now sitting up in recliner awake, chair alarm on. pt asking for nicotine lozenge approx q2hrs. chair alarm on and call light in reach. will continue to monitor.
[2020-02-06 06:01] LABS: HEMATOCRIT 32.3 % (42.0-52.0); HEMOGLOBIN 10.5 gm/dL (14.0-18.0); MCHC 32.5 g/dL (28.0-37.0); MCV 92.3 fL (80.0-100.0); PLATELET COUNT 408 thou/uL (150-400); RDW 15.2 % (10.5-14.5)
[2020-02-06 06:21] LABS: CALCIUM 8.4 mg/dL (8.5-10.1); CREATININE 0.4 mg/dL (0.7-1.3); POTASSIUM 3.7 mmol/L (3.5-5.1)
[2020-02-06 08:00] VITALS: BP 101/71
[2020-02-06] MEDS ORDERED: VITAMIN D325 MC1 PO (08:05)
[2020-02-06] MEDS ORDERED: PEPCID20 MG PO (08:05)
[2020-02-06] MEDS ORDERED: PULMICORT0.5 MG/22 INH (08:05)
[2020-02-06] MEDS ORDERED: MELATONIN5 M1 PO (08:05)
[2020-02-06] MEDS ORDERED: METOPROLOL TART25 MG PO (08:05)
[2020-02-06] MEDS ORDERED: IPRAT-ALBUT 0.5-3 ML INH (08:05)
[2020-02-06] MEDS ORDERED: NEBULIZER MISCELL (08:05)
[2020-02-06 08:39] LABS: ABSOLUTE NEUTROPHILS 4.9 thou/uL (1.4-8.2); PLATELET ESTIMATE NORMAL
--- NOTE | 2020-02-06 10:19 | NUR ---
valorie solis from [facility] called report given that he will dc home, going to spend few days at his mom house until renovations are complete at his home. no hh benefit's. hellen going to need education. recommendation [facility] for ethol abuse support, outpt neuro pysch. no driving. family to assist with pills and bills if needed.
[2020-02-06 10:22] VITALS: BP 123/70
[2020-02-06 10:39] VITALS: BP 123/70
--- NOTE | 2020-02-08 11:45 | HC ---
[facility] [place] [address] CONSULTATION Name: LESTER GERONIMO Room #: 505-P [facility] IN M.R.#: [id number] Admission: 01/30/20 Attend Phys: Marco A Barrios MD Discharge: 02/06/20 Date of : 56 Report #: [id number] THIS REPORT FOR: cc: LAVONNE Bains family physician/PCP LAVONNE Bains family physician/PCP Thai Acevedo PhD ~ CC: Marco A BANERJEE physician/PCP DATE OF SERVICE: 02/02/2020 NEUROBEHAVIORAL STATUS EXAM ATTENDING PHYSICIAN: Marco A Barrios MD PHOTO RETOUCHER: Thai Acevedo, PhD CLINICAL PRESENTATION: The patient is a 59-year-old male admitted to the rehabilitation unit at [facility] for comprehensive inpatient rehabilitation program. He was originally admitted to the hospital on 01/22/2020 with respiratory failure, required mechanical ventilation and on IV antibiotics, steroids, alcohol withdrawal protocol, sepsis, respiratory failure, hyponatremia and buttock wounds. The patient has a history of significant alcohol intoxication. His assessment on admission to the rehabilitation unit includes toxic metabolic encephalopathy, acute hypoxic hypercapnic respiratory failure, status post extubation on 01/26/2020, pneumonia with acute exacerbation of COPD, sinus tachycardia, hyponatremia, protein-calorie malnutrition, chronic alcohol abuse with withdrawal, peripheral neuropathy, and coccygeal ulcer on the buttocks and heel breakdown. A complete description of his medical condition, history and medications can be found in his medical records. Neuropsychological consultation was requested to provide assistance in the assessment of cognitive and emotional status and to provide recommendations and services. Prior to this most recent admission, the patient was living independently with his in their home. He reports having been 34 years. He has no children. The patient has 1 brother and 1 sister. He is a high school graduate. He reports having completed 3 years of a technical program. 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 He reports being on disability for problems with his feet. TECHNIQUES UTILIZED: Clinical interview, review of medical records, staff consultation and behavioral observation, mini mental status exam 2 standard version, clock drawing, verbal fluency assessment and brief abstract reasoning test. [facility] [address] [place] [address] CONSULTATION Name: LESTER GERONIMO Room #: 505-P [facility] IN M.R.#: [id number] Admission: 01/30/20 Attend Phys: Marco A Barrios MD Discharge: 02/06/20 Date of : 56 Report #: [id number] EXAMINATION FINDINGS: Review of medical records report hotline call placed with [facility] based on EMS/ER report. His living conditions and physical appearance upon admission was described as unlivable. The patient is reported to have been covered in feces and foul smelling wtih maggots. He had multiple pressure ulcers on his sacral area and knee. EMS reported the home was filthy with animal and human feces and beer cans strewn about. The patient is reported to have been minimally responsive. Reported is a history of alcohol abuse and disability due to fibromyalgia. The patient reports the reason for his hospitalization is due to balance problems. He also reports having had pneumonia. He does acknowledge alcohol abuse, but minimizes the quantity. The patient appears emaciated. He reports having an appetite that has returned to within normal limits and that he has regained his normal weight. Decreased insight into his deficits are suggested. He does not present with receptive or expressive aphasia. Thoughts were logically organized and there is no evidence of thought disorder. He does not report auditory or visual hallucinations. The patient reports having a 8-hjcp-r-day habit of cigarette smoking, inconsistent sleep and pain when sitting. He does not report difficulty with appetite, anxiety, depression, or cognitive functioning. His performance on the MMSE 2 brief version was within normal limits with a raw score of 15/16. He was 3/3 for initial registration, 5/5 for orientation to time and place and 2/3 for immediate recall of 3 items after a brief time delay and distraction. Performance on the MMSE 2 standard version was in the borderline range with a raw score of 24/30, which is a T score of 36 and percentile rank of 8. The patient was 1/5 for serial sevens. He was 2/2 for naming, 1/1 for repetition, 3/3 for auditory comprehension. He could read and follow single command and write a sentence. The patient was unable to copy a simple geometric design. Performance on clock drawing is in the borderline range with difficulty in hand placement. Brief abstract reasoning test was in the impaired range with a score of 3/8. Letter fluency was extremely low with a T score of 19 and percentile rank of less than 1. Category fluency was in the borderline range with a T score of 31 and percentile rank of 3. Overall, total fluency is a T score of 22 and less than 1 percentile. The patient is alert and oriented. He is presenting with deficits in sustained concentration, visual spatial construction and executive functioning. Decreased insight into his deficits is suggested. [facility] [address] [place] [address] CONSULTATION Name: LESTER GERONIMO Room #: 505-P [facility] IN M.R.#: [id number] Admission: 01/30/20 Attend Phys: Marco A Barrios MD Discharge: 02/06/20 Date of : 56 Report #: [id number] DIAGNOSTIC IMPRESSION: Neurocognitive disorder, possibly due to alcohol abuse -- extent to be determined, currently with moderate to severe deficits, primarily in executive functioning and visual spatial construction. Alcohol use disorder -- persistent. RECOMMENDATIONS: Following stabilization of this acute medical event, alcohol withdrawal, ventilation, and inpatient rehabilitation, he will benefit from a more thorough neuropsychological evaluation. The patient may be presenting with an alcohol abuse-related major neurocognitive disorder (dementia). Currently, the patient should not return to driving upon discharge. He will require assistance in the management of medication, finances and nutrition. A structured environment in which alcohol usage is prohibited is indicated. It should be noted that his prior living condition, per medical records, appears to have been uninhabitable. However, his is described as cleaning the home and preparing for his return Thank you very much for allowing me to provide the consultation on this patient. <ELECTRONICALLY SIGNED> By: Thai Acevedo, PhD 02/08/20 1145 1643 03 Thai Acevedo, PhD /nt
--- NOTE | 2020-02-11 09:33 | H ---
[facility] [place] [address] HISTORY AND PHYSICAL Name: LESTER GERONIMO Room #: 505-P [facility] IN M.R.#: [id number] Admission: 01/30/20 Attend Phys: Marco A Barrios MD Discharge: 02/06/20 Date of : 56 Report #: [id number] THIS REPORT FOR: cc: LAVONNE - Nara family physician/PCP LAVONNE - No family physician/PCP Marco A Barrios MD ~ CC: Marco A BANERJEE physician/PCP DATE OF SERVICE: 01/31/2020 POST ADMISSION PHYSICIAN EVALUATION HISTORY OF PRESENT ILLNESS: The patient has been admitted for acute in-hospital inpatient rehabilitation. Agree with the history and physical documentation as noted. I saw him on the consult service and he initially refused to come. He is now cooperative and has been admitted for inpatient rehabilitation. He is participatory in therapies. He originally was admitted on 01/22/2020 with respiratory failure, was in the ICU, mechanically ventilated for 4 days on IV antibiotics, steroids, ETOH protocol, diagnosis of sepsis, respiratory failure, hyponatremia, buttock wounds. He has a history of significant ETOH intoxication, but did not utilize any gait aids at home, was often incontinent when intoxicated at home. Past medical history, allergies, social history, habits, please see the history and physical documentation. MEDICATIONS: Per SEP. REVIEW OF SYSTEMS: No current complaints of chest pain, shortness of breath or abdominal discomfort. Wound care is following regarding areas of breakdown as are noted. He has had unstageable pressure ulcers both buttocks with DTI, bilateral heels. He is noted to have significant cachexia with protein-calorie malnutrition. PHYSICAL EXAMINATION: GENERAL: He is a thin, cachectic white male in no obvious distress. VITAL SIGNS: Temperature 97.5, pulse 103, respirations 20, blood pressure 108/67. The patient is alert. He has minimal verbalizations, but is appropriate. Will follow basic 1 step commands. HEENT: Facies appeared symmetric. He is in no distress. He is cooperative. CHEST: Sounded clear to auscultation. CARDIOVASCULAR: Regular rate and rhythm. ABDOMEN: Bowel sounds positive, nontender. GENITOURINARY AND RECTAL: Deferred. EXTREMITIES: He has functional range of motion of both upper extremities, [facility] [address] [place] [address] HISTORY AND PHYSICAL Name: LESTER GERONIMO Room #: 505-P [facility] IN ..#: [id number] Admission: 01/30/20 Attend Phys: Marco A Barrios MD Discharge: 02/06/20 Date of : 56 Report #: [id number] strength grade 4-/5, upper extremities are 4-/5. Lower extremities are 4-/5. No calf swelling. Negative Homans. He has been min assist for short distance ambulation. ASSESSMENT: 1. Toxic metabolic encephalopathy. 2. Acute hypoxic hypercapnic respiratory failure, status post extubation, 01/26/2020. 3. Pneumonia with acute exacerbation of chronic obstructive pulmonary disease. 4. Sinus tachycardia. 5. Hyponatremia. 6. Protein-calorie malnutrition. 7. Chronic ETOH abuse with withdrawal. 8. Peripheral neuropathy. 9. Coccygeal ulcer, buttocks and heel breakdown. PLAN: The patient has been admitted for acute in-hospital inpatient rehabilitation. From a postadmission physician evaluation perspective, there are no relevant changes since the preadmission screening. Please see the above review of prior and current medical and functional conditions and comorbidities. Please see the patient's previous and current functional status. As far as the risk of complications, the patient has multiple medical comorbidities as noted above. Initial plan of care involves the interdisciplinary acute inpatient rehabilitation program. Measurable functional goals would be for the patient to improve as far as strength, mobility, ADLs and overall cognition, so that he can return back to the home setting. Prognosis is reasonably good with estimated length of stay probably through next Monday, which is what I had previously discussed with the patient and his . Potential barriers would include his above noted comorbidities and decreased functional status. 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 While I was on consult rounds and discussed this with the patient and . We tentatively planned for discharge next Monday depending upon his progress. <ELECTRONICALLY SIGNED> By: Marco A Barrios MD 02/11/20 0933 [id number] Marco A Barrios MD /nt
--- NOTE | 2020-02-11 09:34 | PLAN ---
[facility] [place] [address] REHAB UNIT PLAN OF CARE Name: LESTER GERONIMO Room #: 505-P DIS IN M.R.#: [id number] Admission: 01/30/20 Attend Phys: Marco A Barrios MD Discharge: 02/06/20 Date of : 56 Report #: [id number] THIS REPORT FOR: //name// CC: Marco A Barrios [facility] physician/PCP DATE OF SERVICE: 02/01/2020 OVERALL PLAN OF CARE The overall plan of care is based on the preadmission screen, post-admission physician evaluation and information garnered from therapy assessments. The patient has some decreased memory. He has been followed by the therapy team with speech therapy noting [id number] memory deficits. He is on mechanical soft, thin liquid. He has been working with physical therapy and doing better working on front-wheeled walker ambulation over 180 feet with supervision. Occupational therapy is working on higher level balance skills. He has fair dynamic standing balance. He needs setup for ADLs. He does have moderate impairment as far as functional cognition. ASSESSMENT: 1. Toxic metabolic encephalopathy. 2. Acute hypoxic hypercapnic respiratory failure, status post extubation on 01/26/2020. 3. Pneumonia with acute exacerbation of chronic obstructive pulmonary disease. 4. Sinus tachycardia. 5. Hyponatremia. 6. Protein-calorie malnutrition. 7. Chronic ETOH abuse with withdrawal. 8. Peripheral neuropathy. 9. Coccygeal ulcer on buttocks and heel breakdown. PLAN: 1. Estimated length of stay is through next Monday at this point. 2. Medical prognosis is reasonably good. 3. Anticipated interventions includes the interdisciplinary acute inpatient rehabilitation program. 4. Anticipated functional outcomes would be for the patient to further improve his gait, mobility, balance to further improve cognitively and with basic ADLs, so he can reasonably function and return back to the home setting. 5. Discharge destination would be back home with his . 6. Expected therapy by discipline includes PT, OT and speech 1 hour per day [address] [address] REHAB UNIT PLAN OF CARE Name: LESTER GERONIMO Room #: 505-P [facility] [place] .R.#: [id number] Admission: 01/30/20 Attend Phys: Marco A Barrios MD Discharge: 02/06/20 Date of : 56 Report #: [id number] each five days a week throughout the duration of the acute inpatient rehabilitation stay. <ELECTRONICALLY SIGNED> By: Marco A Barrios MD 02/11/20 0934 1200 192 Marco A Barrios MD /nt
== END 2020-02-06 11:20 | disposition home health service (06) | DRG 91 ==
PROVIDERS: Nurse Practitioner; Nurse Practitioner Family; ADMIT Physical Medicine & Rehabilitation; ATTEND Physical Medicine & Rehabilitation
DX: G92 Toxic encephalopathy (principal); J18.9 Pneumonia, unspecified organism; E43 Unspecified severe protein-calorie malnutrition; J96.22 Acute and chronic respiratory failure with hypercapnia; J96.21 Acute and chronic respiratory failure with hypoxia; E87.1 Hypo-osmolality and hyponatremia; J44.0 Chronic obstructive pulmonary disease with (acute) lower respiratory infection; F10.239 Alcohol dependence with withdrawal, unspecified; J44.1 Chronic obstructive pulmonary disease with (acute) exacerbation; Z68.1 Body mass index [BMI] 19.9 or less, adult; R53.81 Other malaise; D64.9 Anemia, unspecified; G62.9 Polyneuropathy, unspecified; E55.9 Vitamin D deficiency, unspecified; I34.0 Nonrheumatic mitral (valve) insufficiency; L89.150 Pressure ulcer of sacral region, unstageable; L89.300 Pressure ulcer of unspecified buttock, unstageable; Z88.8 Allergy status to other drugs, medicaments and biological substances
CPT/HCPCS: 10112

== ENCOUNTER → 2020-02-18 | Outpatient (CLI) | payer OTHER ==
[~2020-02-18] MED LIST changes: +MELATONIN5 M1 PO; +NEBULIZER MISCELL; +PULMICORT0.5 MG/22 INH; +VITAMIN D325 MC1 PO
== END ==
LOC: HYPER 10:14
PROVIDERS: ATTEND Emergency Medicine
DX: L89.312 Pressure ulcer of right buttock, stage 2 (principal); L89.321 Pressure ulcer of left buttock, stage 1; L89.892 Pressure ulcer of other site, stage 2; L97.512 Non-pressure chronic ulcer of other part of right foot with fat layer exposed; L84 Corns and callosities; E43 Unspecified severe protein-calorie malnutrition; R54 Age-related physical debility; R41.82 Altered mental status, unspecified; J44.9 Chronic obstructive pulmonary disease, unspecified; F41.9 Anxiety disorder, unspecified; F32.9 Major depressive disorder, single episode, unspecified; F10.129 Alcohol abuse with intoxication, unspecified; F17.200 Nicotine dependence, unspecified, uncomplicated

== ENCOUNTER → 2020-02-25 | Outpatient (CLI) | payer OTHER | LOC: HYPER 12:11 | PROVIDERS: ATTEND Emergency Medicine | DX: L89.312 Pressure ulcer of right buttock, stage 2 (principal); L89.321 Pressure ulcer of left buttock, stage 1; L97.512 Non-pressure chronic ulcer of other part of right foot with fat layer exposed; R54 Age-related physical debility; E43 Unspecified severe protein-calorie malnutrition; R41.82 Altered mental status, unspecified; J44.9 Chronic obstructive pulmonary disease, unspecified; F10.129 Alcohol abuse with intoxication, unspecified; F41.9 Anxiety disorder, unspecified; F32.9 Major depressive disorder, single episode, unspecified; Z87.891 Personal history of nicotine dependence ==

== ENCOUNTER 2020-02-28 23:31 | Emergency (ER) | payer OTHER ==
[~2020-02-28] VITALS: Ht 180.3 cm; Wt 54.9 kg
[2020-02-29 01:44] LABS: HEMATOCRIT 38.9 % (42.0-52.0); HEMOGLOBIN 12.9 gm/dL (14.0-18.0); MCH 29.5 pg (26.0-34.0); MCHC 33.2 g/dL (28.0-37.0); MCV 88.7 fL (80.0-100.0); PLATELET COUNT 379 thou/uL (150-400); RBC 4.38 mil/uL (4.50-6.00); RDW 15.2 % (10.5-14.5); WBC 9.1 thou/uL (4.0-11.0)
[2020-02-29 01:47] LABS: ANION GAP 10 mmol/L (7-16); BUN 8 mg/dL (7-18); CALCIUM 8.8 mg/dL (8.5-10.1); CHLORIDE 97 mmol/L (98-107); CO2 28 mmol/L (21-32); CREATININE 0.4 mg/dL (0.7-1.3); GLUCOSE 89 mg/dL (74-106); POTASSIUM 4.5 mmol/L (3.5-5.1); SODIUM 135 mmol/L (136-145)
[2020-02-29 01:55] LABS: TROPONIN-I <0.06 ng/mL (<0.06)
[2020-02-29 02:16] LABS: ABSOLUTE NEUTROPHILS 5.6 thou/uL (1.4-8.2); LARGE PLATELETS OCCASIONAL; MYELOCYTES 2 %
[2020-02-29 03:38] VITALS: BP 134/76
--- NOTE | 2020-02-29 10:55 | EKG ---
[facility] [place] [address] ELECTROCARDIOGRAM REPORT Name: WARNINGLESTER [id number] Admission: 02/28/20 Attend Phys: Discharge: 02/29/20 Date of : 56 Report #: [id number] THIS REPORT FOR: cc: LAVONNE - No family physician/PCP LAVONNE - No family physician/PCP Ronni Shirley MD [facility] THIS REPORT FOR: //name// [facility] ED Test Date: 2020-02-29 Test Time: 00:42:41 Pat Name: LESTER GERONIMO Department: Room: Gender: Ultrasound Technician: OLAMIDE : 1960 Requested By: Yobani Holloway Order Number: [id number] MD: Ronni Shirley Measurements Intervals [place] Rate: 99 P: 62 WV: 129 QRS: 57 QRSD: 99 T: 39 QT: 369 QTc: 474 Interpretive Statements Sinus rhythm Compared to ECG 01/27/2020 18:44:30 Sinus tachycardia no longer present Electronically Signed On 02-29-2020 10:55:33 CDT by Ronni Shirley [email or web address] <ELECTRONICALLY SIGNED> By: Ronni Shirley MD, FACC 02/29/20 1055 0042 0042 Ronni Shirley MD, [facility] /EPI
== END 2020-02-29 03:39 | disposition home or self-care (01) ==
LOC: ER 23:31
PROVIDERS: Emergency Medicine
DX: R06.00 Dyspnea, unspecified (principal); Z20.828 Contact with and (suspected) exposure to other viral communicable diseases; M79.7 Fibromyalgia; F17.210 Nicotine dependence, cigarettes, uncomplicated; Z88.8 Allergy status to other drugs, medicaments and biological substances; Z79.899 Other long term (current) drug therapy

== ENCOUNTER → 2020-03-16 | Outpatient (CLI) | payer OTHER | LOC: HYPER 13:07 | PROVIDERS: ATTEND Emergency Medicine | DX: L89.313 Pressure ulcer of right buttock, stage 3 (principal); L89.322 Pressure ulcer of left buttock, stage 2; L89.892 Pressure ulcer of other site, stage 2; L84 Corns and callosities; R54 Age-related physical debility; E43 Unspecified severe protein-calorie malnutrition; R41.82 Altered mental status, unspecified; J44.9 Chronic obstructive pulmonary disease, unspecified; F10.129 Alcohol abuse with intoxication, unspecified; F17.200 Nicotine dependence, unspecified, uncomplicated; F41.9 Anxiety disorder, unspecified ==

== ENCOUNTER → 2020-04-27 | Outpatient (CLI) | payer OTHER | LOC: HYPER 15:06 | PROVIDERS: ATTEND Emergency Medicine | DX: L89.313 Pressure ulcer of right buttock, stage 3 (principal); L89.322 Pressure ulcer of left buttock, stage 2; L89.892 Pressure ulcer of other site, stage 2; L84 Corns and callosities; R54 Age-related physical debility; R41.82 Altered mental status, unspecified; E43 Unspecified severe protein-calorie malnutrition; E46 Unspecified protein-calorie malnutrition; J44.9 Chronic obstructive pulmonary disease, unspecified; F17.200 Nicotine dependence, unspecified, uncomplicated; F10.129 Alcohol abuse with intoxication, unspecified; F41.9 Anxiety disorder, unspecified; F32.9 Major depressive disorder, single episode, unspecified ==

== ENCOUNTER → 2020-05-25 | Outpatient (CLI) | payer OTHER | LOC: HYPER 05-18 13:47 | PROVIDERS: ATTEND Emergency Medicine | DX: L89.313 Pressure ulcer of right buttock, stage 3 (principal); L89.323 Pressure ulcer of left buttock, stage 3; L89.892 Pressure ulcer of other site, stage 2; L84 Corns and callosities; E43 Unspecified severe protein-calorie malnutrition; R54 Age-related physical debility; R41.82 Altered mental status, unspecified; J44.9 Chronic obstructive pulmonary disease, unspecified; F41.9 Anxiety disorder, unspecified; F17.200 Nicotine dependence, unspecified, uncomplicated; F10.129 Alcohol abuse with intoxication, unspecified; F32.9 Major depressive disorder, single episode, unspecified ==